=== PATIENT | female | born 1985 | race Caucasian/White ===

== ENCOUNTER 2023-03-22 13:36 | Emergency (ER) | payer OTHER, SELFPAY ==
--- NOTE | ~2023-03-22 | XR_ITS ---
EXAM: XR toe 4th RT min 2V DATE: 03/22/2023 14:08 HISTORY: jammed 4th rt toe. pain swelling. limited rom . COMPARISON: None available. FINDINGS: Normal mineralization. Likely acute fracture fragment adjacent to the distal and lateral a spect of the fourth proximal phalange, donor site is unclear. Note that in some views the margins of the fragment appear smooth and sclerotic which can be seen with subacute to chronic fractures, so the age of this fracture is difficult to determine. No lytic or blastic lesion. Joint spaces and physes are maintained. No erosion or periosteal change. Soft tissues within normal limits. IMPRESSION: Likely acute fracture fragment adjacent to the distal and lateral aspect of the fourth pr oximal phalange. Reviewed, dictated and finalized at location K. IMPRESSION: Likely acute fracture fragment adjacent to the distal and lateral a spect of the fourth proximal phalange.
[2023-03-22 13:53] VITALS: BP 162/97; PULSE 16; RESP 16; TEMP 36.1; O2SAT 100
--- NOTE | 2023-03-22 13:55 | ED.LOWEXIN ---
HPI - Extremity Injury (Lower) General Chief Complaint: Extremity Injury, Lower Stated Complaint: toe injury(rt foot) Time Seen by Provider: 03/22/23 13:55 Source: patient, RN notes reviewed and old records reviewed Mode of arrival: ambulatory Limitations: no limitations History of Present Illness HPI Narrative: 38-year-old female presents to the [facility] with complaints of a right 4th toe pain. Patient states she was wearing heels all day and developed pain to the base and lateral aspect of the toe. No bruising, mild swelling, tender to the MTP joint Onset (ago): day(s) (2) Related Data Home Medications Medication Instructions Recorded Confirmed No Home Medications 03/22/23 03/22/23 Allergies Allergy/AdvReac Type Severity Reaction Status Date / Time Sulfa (Sulfonamide AdvReac Mild Hives Verified 03/22/23 14:04 Antibiotics) tramadol AdvReac Mild Hives Verified 03/22/23 14:05 Review of Systems Review of Systems: All systems reviewed & are unremarkable except as noted in HPI and below Constitutional: Constitutional: Reports no additional constitutional complaints Eyes: Eyes: Reports no additional eye complaints ENT: Reports system reviewed and no additional complaints, except as documented Cardiovascular: Cardiovascular: Reports no additional cardiovascular complaints, Denies chest pain and Denies dyspnea Respiratory: Respiratory: Reports no additional respiratory complaints, Denies chest congestion, Denies cough and Denies dyspnea Gastrointestinal: Gastrointestinal: Reports no additional gastrointestinal complaints, Denies abdominal pain, Denies nausea and Denies vomiting Musculoskeletal: Musculoskeletal: Reports as per HPI Integumentary/Breasts: Skin/Breast: Reports system reviewed and no additional complaints, except as docu Neurologic: Reports system reviewed and no additional complaints, except as documented Psychiatric: Psychiatric: Reports no additional psychiatric complaints Allergic/Immunologic: Allergic/Immunologic: Reports no additional allergic/immunologic complaints PMFSH Comments At the time of my signature, I reviewed and agree with the nursing past medical, surgical, social, and family history. There is no relevant family history pertinent to the patient complaint. Exam Const: General: cooperative, healthy appearing, comfortable, no acute distress, well developed, alert and well nourished Nutritional Appearance: well nourished Orientation/consciousness: patient oriented x3 Limitations: no limitations HENMT: Head: normal to inspection Ears: hearing grossly normal bilaterally and external ears normal Face/Nose/Sinus: Normal external nose present, Normal nares present, Normal nasal mucous membranes and turbinates present and normal facial exam Face and sinus: normal facial exam Eyes: General: appearance normal, both eyes and all related structures Alignment and Position: alignment normal Periorbital: periorbital findings normal Pupils: Equal, round and reactive pupils present EOM: EOMs intact bilaterally Neck: Neck: normal visual inspection, full ROM, no lymphadenopathy and no meningeal signs Chest: Chest palpation & inspection: normal inspection of the chest Resp: Effort & Inspection: normal respiratory effort and able to speak in complete sentences Auscultation: clear to auscultation bilaterally, no crackles, no rales, no rhonchi and no wheezes Cardio: Rate: regular rate Rhythm: regular rhythm Back/Spine/Pelvis: Cervical Spine: cervical ROM normal Thoracic/Lumbar Spine: No thoracic spinal tenderness Skin: General skin exam: normal color and no rashes or lesions noted Lesions: no lesions Rashes: no rashes Wounds: no wounds Neuro: General: patient oriented x3, gait normal, tone normal, moves all extremities and no meningeal signs Cranial nerves: Yes Equal, round and reactive pupils present Cognition (Neuro): normal cognition Speech: normal speech Gait exam (Neuro): No
== END 2023-03-22 14:37 | disposition home or self-care (01) ==
PROVIDERS: Emergency Provider Nurse Practitioner
DX: S92.501A Displaced unspecified fracture of right lesser toe(s), initial encounter for closed fracture (principal); X58.XXXA Exposure to other specified factors, initial encounter
CPT/HCPCS: 73660; 99214; G0463

== ENCOUNTER 2023-05-24 10:46 | Outpatient (CLI) | payer OTHER, SELFPAY ==
[2023-05-24 18:48] LABS: Alanine Aminotransferase 38 U/L (6-35); Albumin Level 4.3 g/dL (3.5-5.1); Alkaline Phosphatase 84 U/L (38-126); Anion Gap 7 mmol/L (8-16); Aspartate Amino Transferase 50 U/L (14-36); Bilirubin,Total 0.5 mg/dL (0.2-1.3); Blood Urea Nitrogen 11 mg/dL (7-17); Calcium 8.8 mg/dL (8.4-10.2); Carbon Dioxide 29 mmol/L (22-30); Chloride 101 mmol/L (98-107); Cholesterol 179 mg/dL (0-200); Estimated Glomerular Filt Rate > 60; Glucose 103 mg/dL (65-110); HDL Direct 43 mg/dL; Potassium 4.5 mmol/L (3.4-5.0); Sodium 137 mmol/L (137-145); Triglycerides 95 mg/dL (<150)
[2023-05-24 18:58] LABS: LDL Cholesterol Direct 102 mg/dL
[2023-05-24 19:48] LABS: Hemoglobin A1C 5.7 % (<5.7)
== END 2023-05-24 10:47 | disposition home or self-care (01) ==
LOC: ANHGOSHLAB 10:48
PROVIDERS: PCP Emergency Medicine; Visit Provider Emergency Medicine
DX: E88.81 Metabolic syndrome and other insulin resistance (principal)
CPT/HCPCS: 36415; 80053; 80061; 83036; 84443

== ENCOUNTER 2023-06-30 10:00 | Outpatient (RCR) | payer OTHER, MEDICAID, SELFPAY ==
--- NOTE | 2023-05-30 12:44 | PTOPEVAL1 ---
Assessment and note entered by Guanako Kaur, PT Evaluation Information Assessment Status Evaluation Diagnosis Sprain of R ACL Onset 18 months ago Subjective Information Patient reports damaging her ACL 18 months ago while she lived in [place]. Unable to do therapy at that time as her work schedule does not allow it. 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 Patient does use a sleeve while at work. Patient reports stiffness in the morning and then it will loosen up, but by the end of her work day it has fatigued again and causes pain. Occasional knee buckling causing falls. Reported Pain Level Pain Score 4: Self Report Assessment PT Clinical Summary Lianne is a 38 year old female coming into the clinic with a diagnosis of R ACL injury. Patient has weakness in her hip and slight tenderness over the inferior medial portion of her R knee, but good knee strength and no positive special tests. Physical therapist will work on closed chain knee exercises and hip strengthening. Modalities and manual therapy as needed for pain. Plan of Care Interventions Electrical Stimulation,Gait Training,Hot Pack/Cold Pack,Manual Therapy,Neuro Re-education,Patient/ Caregiver Education,Therapeutic Activities, Therapeutic Exercise,Ultrasound Other Interventions cupping, taping, IASTM PT Services Indicated Yes Treatment Frequency and 1-2x/week for 8 visits Duration These treatments will address the objective and functional deficits as defined above. The patient will be advanced safely and appropriately in order for the patient to progress towards his/her prior level of function. Additional exercises will be introduced and as well as a comprehensive home exercise program upon discharge, if needed, ?to ensure carryover of functional gains achieved in the clinic. This treatment plan has been reviewed and agreement upon by the patient.
--- NOTE | 2023-05-30 12:44 | OPREHPOC ---
Outpatient Therapy Plan of Care This is a Multidisciplinary Plan of Care that may contain components documented by all disciplines (PT, OT, and ST.) PT Problem 1 PT Problem #1 Knowledge Deficit PT Goal 1 Goal independent with HEP Target Visit 8 PT Problem 2 PT Problem #2 Pain PT Goal 1 Goal decrease pain to no worse than 3/10 after work Target Visit 8 PT Problem 3 PT Problem #3 Impaired Strength PT Goal 1 Goal TRUPTI hips 5/5 Target Visit 8 Comment to take stress off of the knee
--- NOTE | 2023-06-16 16:06 | PCPTNOTE ---
Pt no showed visit today.
--- NOTE | 2023-06-30 12:32 | OPREHPOC ---
Outpatient Therapy Plan of Care This is a Multidisciplinary Plan of Care that may contain components documented by all disciplines (PT, OT, and ST.) PT Problem 1 PT Problem #1 Knowledge Deficit PT Goal 1 Goal independent with HEP Target Visit 8 Progress Met PT Problem 2 PT Problem #2 Pain PT Goal 1 Goal decrease pain to no worse than 3/10 after work Target Visit 8 Progress Met PT Problem 3 PT Problem #3 Impaired Strength PT Goal 1 Goal TRUPTI hips 5/5 Target Visit 8 Progress Met Comment to take stress off of the knee
--- NOTE | 2023-06-30 12:33 | PTOPDC ---
Assessment and note entered by David Arora, PT Discharge Information Assessment Status Discharge Diagnosis Sprain of R ACL Onset 18 months ago Subjective Information Reports that overall since starting therapy she does feel she is doing better. She has not hesitated to push herself in the gym and pain has been low and controlled. She is still concerned for her usp ability since there is documented structural damage in knee. She plans to schedule orthopedic consult to assess for potential of surgery. No discharge from PT concerns at this time. Understand and compliant with HEP. Reported Pain Level Pain Score 2: Self Report Assessment PT Clinical Summary Patient is demonstrating significant improvement in hip and knee strength. She has minimal loss in R knee flexion ROM but no notable edema is present . She is active and demonstrates understanding and compliance with HEP. I am recommending orthopedic consult to help address options for surgical repair. Plan of Care PT Services Indicated No
== END 2023-06-30 15:30 | disposition home or self-care (01) ==
LOC: ANHPT 10:00
PROVIDERS: PCP Emergency Medicine; Visit Provider Emergency Medicine
DX: S83.511D Sprain of anterior cruciate ligament of right knee, subsequent encounter (principal)
CPT/HCPCS: 97110; 97112; 97140; 97161; 97530; 99199

== ENCOUNTER 2024-01-19 09:32 | Outpatient (CLI) | payer OTHER, SELFPAY ==
--- NOTE | ~2024-01-19 | US_ITS ---
EXAMINATION: US pelvic complete w TV DATE: 01/19/2024 10:33 INDICATION: Pelvic pain Comparison:No prior studies for comparison. TECHNIQUE: Multiple transabdominal and endovaginal sonographic images of the pelvis performed. FINDINGS: The uterus measures 10.4 x 5 x 5 cm. There are uterine fibroids, largest on the right measu ring 2.9 x 2.7 x 2.5 cm. The endometrial complex measures 3 mm. The right ovary measures 2.9 x 1.5 x 1.8 cm and the left ovary is not visualized. There are small fol licles in the right ovary. Normal doppler signal in the right ovary. There is no free fluid in the pelvis. There are no abnormal masses seen on either side. IMPRESSION: 1. Enlarged fibroid uterus. Largest discrete fibroid measures 2.9 cm. Reviewed, dictated and finalized at location L.
== END 2024-01-19 09:33 | disposition home or self-care (01) ==
PROVIDERS: PCP Emergency Medicine; Visit Provider Nurse Practitioner Family
DX: N85.2 Hypertrophy of uterus (principal)
CPT/HCPCS: 76830; 76856

== ENCOUNTER 2024-05-24 17:15 | Outpatient (CLI) | payer OTHER, SELFPAY ==
--- NOTE | ~2024-05-24 | XR_ITS ---
EXAMINATION: XR hand LT min 3V DATE: 05/24/2024 17:28 INDICATION: Unspecified injury of left wrist and hand. TECHNIQUE: 3 views of left hand were obtained. COMPARISON: None. FINDINGS: Bone alignment is normal. No fracture. 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 IMPRESSION: 1. No fracture. Reviewed, dictated and finalized at location A. IMPRESSION: 1. No fracture.
== END 2024-05-24 17:16 | disposition home or self-care (01) ==
LOC: ANHIMG 17:16
PROVIDERS: PCP Emergency Medicine; Visit Provider Student in an Organized Health Care Education/Training Program
DX: S69.92XA Unspecified injury of left wrist, hand and finger(s), initial encounter (principal); X58.XXXA Exposure to other specified factors, initial encounter
CPT/HCPCS: 73130

== ENCOUNTER 2024-05-30 23:46 | Observation (INO) | payer OTHER, SELFPAY ==
--- NOTE | ~2024-05-30 | XR_ITS ---
Portable chest x-ray Comparison: None Clinical History: Palpitations Findings: Lungs are clear, without focal consolidation or pleural effusion. Cardiomediastinal silho uette is stable. Bones and soft tissues are unremarkable. Impression: Normal chest. Reviewed, dictated and finalized at location M. Impression: Normal chest.
--- NOTE | ~2024-05-30 | US_ITS ---
EXAMINATION: US OB <=14 wk fetus w TV DATE: 05/31/2024 09:20 INDICATION: Early . Supraventricular tachycardia. TECHNIQUE: Real-time transabdominal and transvaginal pelvic ultrasound was performed. COMPARISON: Ultrasound 01/19/2024 FINDINGS: TRANSABDOMINAL ULTRASOUND: The uterus measures 10.6 x 5.8 x 6.6 cm. TRANSVAGINAL ULTRASOUND: The endometrial complex measures 15 mm in thickness. There is a 4 mm cyst in the endometrial complex with intradecidual sign that may be a gestational sac with estimated gestati onal age of 5 weeks and 0 days. There is a 3.3 cm subserosal fibroid. The right ovary measures 4.1 x 2.0 x 3.0 cm. The left ovary measures 2.7 x 1.2 x 2.1 cm. There is normal vascular flow in the ovarie s. There is no free fluid in the pelvis. IMPRESSION: 1. 4 mm cyst in the endometrial complex that may be a gestational sac with estimated gestational age of 5 weeks and 0 days. Spontaneous and ectopic are not excluded. Serial beta hCGs are recommended. 2. Uterine fibroid. Reviewed, dictated and finalized at location A. IMPRESSION: 1. 4 mm cyst in the endometrial complex that may be a gestational sac with est imated gestational age of 5 weeks and 0 days. Spontaneous and ectopic are not excluded. Serial beta hCGs are recommended. 2. Uterine fibroid.
--- NOTE | 2024-05-30 23:48 | ECG_ITS ---
Test Date: 2024-05-30 23:54:07 Measurements Intervals [place] Rate: 156 P: 0 TN: 0 QRS: 143 QRSD: 93 T: -6 QT: 258 QTc: 416 Interpretive Statements ATRIAL FLUTTER/TACHYCARDIA WITH RAPID VENTRICULAR RESPONSE WITH ABERRANT CONDUCTION OR VENTRICULAR PREMATURE COMPLEXES POOR R-WAVE PROGRESSION RIGHT AXIS DEVIATION ABNORMAL ECG No previous ECG available for comparison Electronically Signed On 05-31-2024 07:22:22 CDT by Shan Zurita M.D.
[2024-05-30 23:49] VITALS: BP 146/106; PULSE 140; RESP 15; TEMP 36.1; O2SAT 100
[2024-05-31] VITALS (20 sets, daily range): BP systolic 129–190; BP diastolic 72–130; PULSE 72–198; RESP 11–28; TEMP 36.1–37.1; O2SAT 96–100; BMI 38.9
[2024-05-31] MEDS: SODIUM CHLORIDE 0.9% IV 1,000 ML 999 ML IV CONT ×2 (00:09→01:04)
--- NOTE | 2024-05-31 00:17 | PC.NURSE ---
Pt arrived to ED in SVT. EDP Lipsmeyer at bedside. 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 Pt given 6mg adenosine at 0010 (vitals: HR 157, 100% RA, 23R) Pt given 12mg adenosine at 0012 (vitals: HR 160, 100% RA, 21R)
[2024-05-31 00:20] LABS: Basophils Percent Auto 0.2 % (0.2-1.2); Eosinophils Absolute Auto 0.1 K/mm3 (0-0.3); Eosinophils Percent Auto 0.6 % (0-4.4); Hematocrit 47.3 % (37.0-47.0); Hemoglobin 15.8 g/dL (12.0-15.0); Immature Granulocyte Absolute 0.08 K/mm3 (0.00-0.031); Immature Granulocyte Percent A 0.5 % (0-0.5); Lymphocytes Absolute Auto 3.29 K/mm3 (0.9-3.2); Lymphocytes Percent Auto 20.6 % (18.3-44.2); Mean Corpuscular HGB Conc 33.4 g/dl (32-36); Mean Corpuscular Hemoglobin 27.4 pg (26-34); Mean Platelet Volume 9.3 fl (7.4-10.4); Monocytes Absolute Auto 1.2 K/mm3 (0.1-0.6); Monocytes Percent Auto 7.4 % (2.6-8.5); Neutrophils Absolute Auto 11.3 K/mm3 (1.3-6.7); Neutrophils Percent Auto 70.7 % (45.5-73.1); Platelet Count Result 468 k/mm3 (150-375); Red Blood Count 5.77 M/mm3 (4.2-5.4); Red Cell Distribution Width 14.8 % (11.5-14.5)
[2024-05-31 00:29] LABS: Prothrombin Time 13.4 Seconds (11.1-14.7)
[2024-05-31 00:30] LABS: Partial Thromboplastin Time 31.9 Seconds (22.3-36.8)
[2024-05-31 00:32] LABS: Alanine Aminotransferase 36 U/L (6-35); Albumin Level 4.5 g/dL (3.5-5.1); Alkaline Phosphatase 107 U/L (38-126); Anion Gap 15 mmol/L (4-12); Aspartate Amino Transferase 38 U/L (14-36); Bilirubin,Total 0.5 mg/dL (0.2-1.3); Blood Urea Nitrogen 11 mg/dL (7-17); Calcium 9.3 mg/dL (8.4-10.2); Carbon Dioxide 24 mmol/L (22-30); Chloride 97 mmol/L (98-107); Estimated CRCL calculation 132 ml/min; Estimated Glomerular Filt Rate > 60; Glucose 219 mg/dL (65-110); Lipase 93 U/L (23-300); Potassium 3.5 mmol/L (3.4-5.0); Sodium 136 mmol/L (137-145)
[2024-05-31 00:33] LABS: Magnesium 1.8 mg/dL (1.6-2.3)
[2024-05-31] MEDS: ADENOSINE IV SOLN 6 MG/2 ML VIAL 18 MG (00:39)
[2024-05-31 00:44] LABS: Troponin I 0.052 ng/mL (0.000-0.034)
[2024-05-31 00:51] LABS: Beta HCG Quantitative 726.43 mIU/ML
[2024-05-31 01:00] LABS: Beta-Hydroxybutyrate/Acetoacetate 0.32 mmol/L (0.02-0.27)
[2024-05-31] MEDS: MAGNESIUM SULF 2 GM/WATER 50ML 2 GM/50 ML BAG IVPB (01:04)
[2024-05-31] MEDS: POTASSIUM CHLORIDE 20 MEQ PACKET (FOR LIQUID) 40 MEQ PO (01:05)
[2024-05-31] MEDS: METOPROLOL TARTRATE INJ 5 MG/5 ML VIAL IV PUSH ×3 (01:17→01:27)
[2024-05-31] MEDS: METOCLOPRAMIDE HCL INJ 10 MG/2 ML VIAL IV PUSH (02:14)
--- NOTE | 2024-05-31 02:16 | ECG_ITS ---
Test Date: 2024-05-31 02:18:36 Measurements Intervals [place] Rate: 79 P: 20 NM: 164 QRS: 114 QRSD: 89 T: 11 QT: 363 QTc: 416 Interpretive Statements SINUS RHYTHM POOR R-WAVE PROGRESSION RIGHTWARD AXIS ABNORMAL ECG Compared to ECG 05/30/2024 23:54:07 SINUS RHYTHM HAS BEEN RESTOREDt Electronically Signed On 05-31-2024 07:25:06 CDT by Shan Zurita M.D.
--- NOTE | 2024-05-31 02:24 | ED.GENADULT ---
HPI - General Adult General Chief complaint: Arrhythmia/Palpitations Stated complaint: palpitations/SOB, 6 weeks Time Seen by Provider: 05/31/24 00:19 History of Present Illness HPI narrative: Patient 39-year-old female who presents emergency department with chief complaint tachycardia and irregular heartbeat patient reports that she felt short of breath and started feeling as though her heart was beating fast patient reports symptoms started about 4 hours prior to arrival patient reports approximately 6 weeks and just found out yesterday. The patient reports that she has no prior history of SVT or AFib her regular heartbeat. Related Data Home Medications Medication Instructions Recorded Confirmed multivitamin 1 tablet PO DAILY 05/24/23 05/24/24 vitamin B complex (B 1 tablet PO DAILY 05/24/23 05/24/24 Complex-Vitamin B12 tablet) Allergies Allergy/AdvReac Type Severity Reaction Status Date / Time Sulfa (Sulfonamide AdvReac Mild Hives Verified 05/30/24 23:53 Antibiotics) tramadol AdvReac Mild Hives Verified 05/30/24 23:53 Review of Systems Review of Systems: A 10 system review of systems was completed on the patient and is negative except for what is stated in the HPI. Nursing and ancillary documentation was reviewed. [facility] Surgical History Surgical History History of appendectomy 2018 Social History Social History Smoking status: Never smoker Alcohol intake: never Substance use: never Substance use type: does not use Lack of Transportation: No Lack of Food: Never True Current Housing: I Have Housing Concerned About Future Housing: No Difficulty Paying Gas/Electric Bills: No Difficulty Paying for Meds: No Currently Unemployed: No Education: Associate Degree Difficulty w/ Childcare or Family Care: No Occupation/Education: occupation Additional occupation/education comments: [employer] Gender identity (if verbalized by the patient): Female Exam Narrative: GENERAL: Well-appearing, well-nourished, and in mild acute distress. HEAD: Normocephalic, atraumatic. EYES: PERRLA and EOMI. ENT: Nares clear, no rhinorrhea or epistaxis. Mucous membranes moist. NECK: Supple. CHEST: Clear to auscultation. No respiratory distress. HEART: Tachycardic rate and rhythm. No murmur heard. Normal peripheral pulses. ABDOMEN: Soft, nontender, nondistended, normal active bowel sounds. EXTREMITIES: Normal range of motion. No edema. SKIN: Warm, dry, no rash. NEURO: No focal deficits. Alert and oriented x3. PSYCH: Normal mood and affect. Course Vital Signs Vital signs: Vital Signs Temperature 36.1 C L 05/30/24 23:49 Pulse Rate 140 H 05/30/24 23:49 Respiratory Rate 15 05/30/24 23:49 Blood Pressure 146/106 H 05/30/24 23:49 Pulse Oximetry 100 05/30/24 23:49 Oxygen Delivery Room Air 05/30/24 23:49 Temperature 36.1 C L 05/30/24 23:49 Pulse Rate 83 05/31/24 02:16 Respiratory Rate 28 H 05/31/24 02:16 Blood Pressure 146/106 H 05/30/24 23:49 Pulse Oximetry 98 05/31/24 02:16 Oxygen Delivery Room Air 05/30/24 23:[address] [facility] Narrative Medical decision making narrative: Differential diagnosis includes SVT, AFib, a flutter, electrolyte abnormality, dehydration EKG showed a narrow complex tachycardia with a rate of 156. Attempt was made to treat the patient with adenosine 6 mg did not affect the patient and 12 mg did slow the patient down where visible flutter waves were seen during the pauses Given the patient's the patient was treated with IV Lopressor. The patient received 3 doses of Lopressor he also received IV fluids magnesium and potassium the patient also is feeling nauseated received a dose of Reglan. Laboratory studies did show a white count of 16 hemoglobin
--- NOTE | 2024-05-31 03:12 | ECG_ITS ---
Test Date: 2024-05-31 03:12:55 Measurements Intervals [place] Rate: 82 P: 10 UT: 162 QRS: 107 QRSD: 108 T: 10 QT: 383 QTc: 447 Interpretive Statements SINUS RHYTHM POOR R-WAVE PROGRESSION RIGHTWARD AXIS ABNORMAL ECG Compared to ECG 05/31/2024 02:18:36 NO DIFFERENCE Electronically Signed On 06-01-2024 13:23:05 CDT by Shan Zurita M.D.
[2024-05-31 03:41] LABS: Troponin I 0.063 ng/mL (0.000-0.034)
[2024-05-31] MEDS: SODIUM CHLORIDE 0.9% IV 1,000 ML 125 ML IV CONT (04:04)
--- NOTE | 2024-05-31 05:36 | ADMGEN ---
This patient, Batsheva Rodriguez, was admitted to IMU Room 206-02 at 0532. Patient/family oriented to hospital policies and general routines including ID bracelet, bed and alarms, visiting hours, pain management, procedures, bathroom and other care routines, personal items, smoking policy, room service/diet, and visiting hours. Information on how to activate the Rapid Response Team has been discussed. Patient/Family are encouraged to report perceived risks to care and to ask questions if they do not understand what they are told or what they should do.
--- NOTE | 2024-05-31 07:45 | WPDCN ---
Assessment and Plan Assessment and plan (1) : Qualifiers: Weeks of gestation: less than 8 weeks Qualified Code(s): Z3A.01 - Less than 8 weeks gestation of Code(s): Z34.90 - Encounter for supervision of normal , unspecified, unspecified trimester Status: Acute Assessment and Plan: - OB US ordered; possible early gestational sac in-utero noted, will need repeat US in 2wks to confirm - Positive beta of 726; repeat pending 48 hours (ordered-- can do outpatient) - Reglan/zofran PRN nausea, encouraged frequent snacking, hydration encouraged - Other PRN meds safe in : Tylenol, Tums/Pepcid, Benadryl/Claritin, colace/miralax - Pt noted to be hypertensive; concern for CHTN on review with other hypertensive values noted in the past-- will continue to monitor, labetalol or nifedipine preferred treatment in with goal BP <140/90 - Would recommend hgbA1c, ABO/Rh, antibody screen - Will refer outpatient to [facility] for co-management of high risk patient if viable confirmed - Will have my office reach out and schedule first visit (2) Atrial flutter with rapid ventricular response: Code(s): I48.92 - Unspecified atrial flutter Status: Acute Assessment and Plan: - Cardiology to manage - S/p adenosine 6mg, 12mg and labetalol IV 5mg x 3 - Now rate controlled in 80's - Beta blockers safe in - TSH normal, hgb 15.8 (hemoconcentration?), repeat troponin downtrending - Anti-coagulation (if indicated, per cardiology's recs), prefer lovenox until 36wks, then transition to heparin - ASA also safe, will start empiric dose of 162mg at 12wks to lower risk of pre-eclampsia HPI Data of Consult Date/Time: 05/31/24 12:30 Requesting Physician: Yasmeen Eden DO Primary Care Provider: Prem Mora MD Consult Narrative Narrative: Batsheva is a 39yo @ 6.0wks, LMP 04/19/24 who is admitted to hospitalist with tachycardia to 198's; s/p 2L IV fluids, adenosine 6mg, 12mg, IV labetalol 5mg x3 doses. Cardiology is also consulted and will follow. Her heart rate is now controlled in the 80's. She denies any CP, SOB, or palpitations now. She recently found out she was . She denies any pelvic pain/bleeding. She denies nausea, vomiting. is complicated by: - Pre-dm/insulin resistance - AMA - Fibroid uterus - Obesity - CHTN? - Tachycardia this admission Review of Systems Constitutional: Constitutional: Denies chills and Denies fever(s) Eyes: Eyes: Denies change in vision Cardiovascular: Cardiovascular: Denies chest pain, Denies rapid heart rate and Denies dyspnea Respiratory: Respiratory: Denies dyspnea Gastrointestinal: Gastrointestinal: Denies abdominal pain, Denies change in bowel habits, Denies nausea and Denies vomiting Genitourinary: Genitourinary: Denies abnormal vaginal bleeding, Denies dysuria, Denies vaginal discharge, Denies vaginal odor and Denies vaginal pruritus Integumentary/Breasts: Skin/Breast: Reports breast pain (/tenderness) Neurologic: Denies dizziness and Denies headache(s) [facility] Surgical History Surgical History History of appendectomy 2018 Family History Family History Father Acute myocardial infarction Social History Social History Smoking status: Never smoker Second hand tobacco smoke exposure: No Alcohol intake: never Substance use: never Substance use type: does not use Do You Feel Safe in your Home?: Yes Lack of Transportation: No Lack of Food: Never True Current Housing: I Have Housing Concerned About Future Housing: No Difficulty Paying Gas/Electric Bills: No Difficulty Paying for Meds: No Currently Unemployed: No Education: Decline to Answer Difficulty w/ C
[2024-05-31 07:56] LABS: Troponin I 0.053 ng/mL (0.000-0.034)
--- NOTE | 2024-05-31 08:49 | PM.CNCAR ---
Assessment and Plan Assessment and plan (1) Atrial flutter with rapid ventricular response: Code(s): I48.92 - Unspecified atrial flutter Status: Acute Assessment and Plan: This is a new diagnosis. She has converted to sinus rhythm and remains in sinus rhythm now. As she is , I discussed wanting to avoid use of AV dilcia agents and certainly any antiarrhythmics. She is in agreement with this. Obviously if she has recurrence we may need to alter our strategy. I am going to send an outpatient referral to an draw frame runner as well. No indication for anticoagulation and would need to avoid this anyhow given that she is . TSH, electrolytes checked and were WNL. I will order an echo. If her echocardiogram is unremarkable she can be discharged to follow up with EP. She needs to follow up with her PCP as well to discuss sleep study. History of Present Illness History of Present Illness Consult date/time: 05/31/24 08:49 Requesting physician: Eliecer Dewey MD Consult reason: Other (SVT) Reason For Visit: Atrial flutter with rapid ventricular response Narrative: Batsheva Rodriguez is a 39-year-old female with no medical history. She is 6 weeks . She comes to the hospital with a chief complaint of palpitations. Patient states she was at work sitting down when she began to feel that her heart was racing and pounding in her chest. She checked her pulse with a pulse oximeter and states that her heart rate was fluctuating between 70 beats per minute and 170 beats per minute. She left work and presented to the emergency department where her initial EKG showed atrial flutter with rapid ventricular response. She was given adenosine and when this was administered, a small flutter waves were seen. However, she did not convert to sinus rhythm. She was given 3 doses IV Lopressor and did convert to sinus rhythm after the 3rd dose. She has not had recurrence of atrial flutter says that time. At the time of my evaluation, she is feeling well and has no complaints. She does not have any history of arrhythmias or any other cardiac history. She has a family history of atrial fibrillation and coronary artery disease. Review of Systems Review of Systems: All systems reviewed & are unremarkable except as noted in HPI and below PMFSH Surgical History Surgical History History of appendectomy 2018 Family History Family History Father Acute myocardial infarction Social History Social History Smoking status: Never smoker Second hand tobacco smoke exposure: No Alcohol intake: never Substance use: never Substance use type: does not use Do You Feel Safe in your Home?: Yes Lack of Transportation: No Lack of Food: Never True Current Housing: I Have Housing Concerned About Future Housing: No Difficulty Paying Gas/Electric Bills: No Difficulty Paying for Meds: No Currently Unemployed: No Education: Decline to Answer Difficulty w/ Childcare or Family Care: No Occupation/Education: occupation 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 Gender identity (if verbalized by the patient): Female Spiritual care concerns: No Meds Home Medications and Allergies Home Medications Medication Instructions Recorded Confirmed Type No Home Medications 05/31/24 05/31/24 History Allergies Allergy/AdvReac Type Severity Reaction Status Date / Time Sulfa (Sulfonamide AdvReac Mild Hives Verified 05/30/24 23:53 Antibiotics) tramadol AdvReac Mild Hives Verified 05/30/24 23:53 Vital Signs Vital Signs - 24 hr 05/30/24 23:49 05/31/24 00:00 05/31/24 00:01 Temperature 36.1 C L Pulse Rate 140 H 144 H 120 H Respiratory Rate 15 20 Blood Pressure 146/106 H Pulse Oximetry 100 97 Ox
--- NOTE | 2024-05-31 14:36 | PM.IMHP ---
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 Pt seen by cardoilogy team awaiting ECho labs reviwed are nl Pt seen by OB/ HAMMERER who order hbaic and BP monitoring today one elevated BP earlier in the day fluids have been stopped plan to monitor BP overnite Pt may need to start Beta blockers for HTN Review of Systems Review of Systems: SOB heart palpations all other 12 systems were negative All systems reviewed & are unremarkable except as noted in HPI and below Constitutional: Constitutional: Denies excessive sweating, Denies fatigue, Denies frequent falls and Denies headache(s) ENT: Denies headache(s) Cardiovascular: Cardiovascular: Denies chest pain, Reports irregular heart rhythm, Reports dyspnea and Reports dyspnea on exertion Respiratory: Respiratory: Denies cough, Denies hemoptysis, Reports dyspnea, Reports dyspnea on exertion and Denies wheezing Gastrointestinal: Gastrointestinal: Denies abdominal pain and Denies change in bowel habits Musculoskeletal: Musculoskeletal: Denies no additional musculoskeletal complaints, Denies limited range of motion and Denies numbness Neurologic: Denies frequent falls, Denies headache(s), Denies numbness and Denies convulsions Psychiatric: Psychiatric: Denies hallucinations and Denies tactile hallucinations Endocrine: Endocrine: Denies excessive sweating, Denies fatigue and Denies flushing Allergic/Immunologic: Allergic/Immunologic: Denies wheezing PMFSH Surgical History Surgical History History of appendectomy 2018 Family History Family History Father Acute myocardial infarction Social History Social History Smoking status: Never smoker Second hand tobacco smoke exposure: No Alcohol intake: never Substance use: never Substance use type: does not use Do You Feel Safe in your Home?: Yes Lack of Transportation: No Lack of Food: Never True Current Housing: I Have Housing Concerned About Future Housing: No Difficulty Paying Gas/Electric Bills: No Difficulty Paying for Meds: No Currently Unemployed: No Education: Decline to Answer Difficulty w/ Childcare or Family Care: No Occupation/Education: occupation 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 Gender identity (if verbalized by the patient): Female Spiritual care concerns: No Meds Home Medications and Allergies Home Medications Medication Instructions Recorded Confirmed Type No Home Medications 05/31/24 05/31/24 History Allergies Allergy/AdvReac Type Severity Reaction Status Date / Time Sulfa (Sulfonamide AdvReac Mild Hives Verified 05/30/24 23:53 Antibiotics) tramadol AdvReac Mild Hives Verified 05/30/24 23:53 Vital Signs Vital Signs - 24 hr 05/30/24 23:49 05/31/24 00:00 05/31/24 00:01 Temperature 36.1 C L Pulse Rate 140 H 144 H 120 H Respiratory Rate 15 20 Blood Pressure 146/106 H Pulse Oximetry 100 97 Oxygen Delivery Room Air 05/31/24 01:17 05/31/24 01:22 05/31/24 01:27 Temperature Pulse Rate 198 H 155 H 146 H Respiratory Rate Blood Pressure Pulse Oximetry Oxygen Delivery 05/31/24 02:16 05/31/24 04:08 05/31/24 06:00 Temperature Pulse Rate 83 80 76 Respiratory Rate 28 H 28 H Blood Pressure 137/85 Pulse Oximetry 98 98 Oxygen Delivery 05/31/24 05:57 05/31/24
[2024-05-31] MEDS: diphenhydrAMINE HCl CAP 25 MG CAPSULE PO (22:02)
[2024-06-01] VITALS (8 sets, daily range): BP systolic 163–187; BP diastolic 90–110; PULSE 76–92; RESP 14–18; TEMP 36.7–36.9; O2SAT 99–100
--- NOTE | 2024-06-01 | ECHO_ITS ---
Patient Info Name: Batsheva Rodriguez Age: 39 years : 1985 Gender: Female HR: 82 bpm BP: 174 / 95 mmHg Heart Rhythm: Sinus Rhythm Technical Quality: Fair Exam Date: 06/01/2024 10:12 AM Exam Location: Echo Lab Patient Status: Outpatient Admit Date: 05/31/2024 Staff Ordering Physician: Leanna Nair Podiatry Doctor: Zainab Ang RDCS Attending Provider: Yasmeen Eden DO Referring Physician: Joanie SOLIS; Exam Type: CA echo doppler color flow Study Info Indications - atrail flutter Complete two-dimensional, color flow and Doppler transthoracic echocardiogram is performed. Summary 1. Complete two-dimensional, color flow and Doppler transthoracic echocardiogram is performed. 2. Unremarkable 2D/Doppler echocardiogram. Left Ventricle Left ventricular chamber dimension is normal. Left ventricular systolic function is normal, estimated at 60-65%. The left ventricular diastolic function is normal. Right Ventricle Right ventricular chamber dimension is normal. Left Atria Left atrial chamber dimension is normal. Right Atria Right atrial chamber dimension is normal. Aortic Valve The aortic valve is normal. Pulmonic Valve The pulmonic valve is not well visualized. Mitral Valve The mitral valve has normal leaflets. Tricuspid Valve The tricuspid valve leaflets are normal. Pericardium/Pleural The pericardium appears normal. Aorta The aortic root size at the sinus of Valsalva is normal. Left Ventricular Outflow Tract Name Value Normal LVOT 2D LVOT Diameter 2.1 cm LVOT Doppler LVOT Peak Gradient 6 mmHg LVOT Mean Gradient 4 mmHg LVOT VTI 36 cm LVOT VTI/AV VTI Ratio 0.9 LVOT Stroke Volume 128 ml LVOT CO 9.1 l/min Pulmonic Valve Name Value Normal PV Doppler PV Peak Gradient 5 mmHg Mitral Valve Name Value Normal MV Doppler MV Decel [place] 364 cm/s2 MV PHT 84 ms MV Area (PHT) 2.6 cm2 4.0-5.0 MV Regurgitation Doppler MR Peak Gradient 8 mmHg MV Diastolic Function MV E Peak Velocity 105 cm/s MV A Peak Velocity 94 cm/s MV E/A 1.1 MV Decel Time 289 ms MV Annular TDI
[2024-06-01 07:53] LABS: Anion Gap 12 mmol/L (4-12); Blood Urea Nitrogen 7 mg/dL (7-17); Calcium 8.2 mg/dL (8.4-10.2); Carbon Dioxide 22 mmol/L (22-30); Chloride 100 mmol/L (98-107); Estimated CRCL calculation 193 ml/min; Estimated Glomerular Filt Rate > 60; Glucose 146 mg/dL (65-110); Magnesium 1.9 mg/dL (1.6-2.3); Potassium 3.5 mmol/L (3.4-5.0); Sodium 134 mmol/L (137-145)
[2024-06-01] MEDS: ACETAMINOPHEN 325 MG TABLET 650 MG PO (09:53)
[2024-06-01 11:53] LABS: Hematocrit 42.4 % (37.0-47.0); Hemoglobin 13.7 g/dL (12.0-15.0); Mean Corpuscular HGB Conc 32.3 g/dl (32-36); Mean Corpuscular Hemoglobin 27.6 pg (26-34); Mean Corpuscular Volume 85.5 fl (80-100); Platelet Count Result 368 k/mm3 (150-375); Red Blood Count 4.96 M/mm3 (4.2-5.4); Red Cell Distribution Width 15.2 % (11.5-14.5); White Blood Count 11.8 K/mm3 (4.5-10.0)
--- NOTE | 2024-06-01 14:24 | PM.DS ---
DS: Admitting Diagnosis Discharge Date 07/02/2024 Admitting Diagnosis Palpitations DS: Discharge Diagnosis Discharge Diagnosis (1) Atrial flutter with rapid ventricular response: Code(s): I48.92 - Unspecified atrial flutter Status: Acute Assessment and Plan: - Converted to A-Fib in ER after IV adenosine X2, and IV labetalol. - Maintained SR on telemetry inpatient. -Started on Labetalol. - No anticoagulation per Apartment Maintenance Manager. - ECHO unremarkable. (2) Essential hypertension: Code(s): I10 - Essential (primary) hypertension Status: Acute Assessment and Plan: - SBP trending 160's to 190's, DBP trending 80's >110. - Started on Labetalol. - Monitor BP closely. (3) : Qualifiers: Weeks of gestation: less than 8 weeks Qualified Code(s): Z3A.01 - Less than 8 weeks gestation of Code(s): Z34.90 - Encounter for supervision of normal , unspecified, unspecified trimester Status: Acute Assessment and Plan: - Follow distributing clerk recommendations. - No anticoagulation. (4) Prediabetes: Code(s): R73.03 - Prediabetes Status: Acute Assessment and Plan: hbaic is nl at 5.7 follow with high risk maternal Plan - Educated on diabetes diet. DS: Summary Hospital Course Hospital Course: patient presented to the ER with complaints of tachycardia and irregular heartbeat, associated with SOB. She denied previous history of A-Flutter or A-Fib. EKG showed narrow complex tachycardia with a rate of 156, and she was given adenosine and IV Lopressor, which converted patient back to SR. She has maintained SR inpatient. Patient's labs were unremarkable except for elevated WBC's at 16, that was likely reactive, trending down to 11.8 without any interventions. Her troponin was also mildly elevated, 0.063>>0.053, likely due to demand ischemia. Her chemistry was fairly unremarkable, including normal TSH and FT4. Patient denied any Hx of Hypertension, but her BP was observed to be elevated, SBP trending 160's to 190's and DBP trending 80's-100's. She was started on Labetalol that was safe with her per OBGYN, as patient reported that she was 6 weeks . Patient was seen by OBGYN during her hospitalization. She was also seen by the rn clinical and No anticoagulation was recommended. Patient's 2-D ECHO was unremarkable, and she was referred to the Car Retarder Operator outpatient per cardiology. Patient was advised to follow up with her PCP to discuss possible sleep study. Her A1C was 5.7 and she was educated on diabetic diet. Patient currently denies any chest discomfort, dizziness, headache or other symptoms, and is medically stable for discharge. Time Spent with Patient Time attestation: Total time spent providing and/or coordinating discharge services: Time spent: Greater than 30 minutes Exam Const: General: cooperative, healthy appearing, no acute distress, in distress and overweight Nutritional Appearance: overweight Orientation/consciousness: oriented to person HENMT: Head: normal to inspection Face/Nose/Sinus: Normal nares present Mouth: Yes moist mucous membranes Eyes: General: appearance normal, both eyes and all related structures Sclera: sclerae normal Pupils: Equal, round and reactive pupils present EOM: EOMs intact bilaterally Neck: Neck: supple Resp: Effort & Inspection: no respiratory distress Auscultation: clear to auscultation bilaterally Cardio: Rate: regular rate Rhythm: regular rhythm GI: Inspection: normal to inspection Auscultation: normal bowel sounds Skin: General skin exam: normal color and no rashes or lesions noted Neuro: General: gait normal Other: Well oriented, CN II-XII grossly intact Extrem: General: normal to inspection Psych: Mental Status: mental status grossly normal Affect: normal affect DS: Data Data Completed and Pending Labs on day of discharge: Labs from last 2
[2024-06-01] MEDS: LABETALOL HCL 100 MG TABLET 200 MG PO (15:39)
== END 2024-06-01 17:44 | disposition home or self-care (01) ==
LOC: ANHED 05-31 02:28 → ANHIMU 05-31 07:43
PROVIDERS: Family Medicine; Nurse Practitioner Adult Health; Admitting Provider Internal Medicine; Emergency Provider Emergency Medicine; PCP Emergency Medicine; Visit Provider Internal Medicine
DX: O99.411 Diseases of the circulatory system complicating pregnancy, first trimester (principal); I48.92 Unspecified atrial flutter; O16.1 Unspecified maternal hypertension, first trimester; O99.891 Other specified diseases and conditions complicating pregnancy; R73.03 Prediabetes; Z3A.01 Less than 8 weeks gestation of pregnancy
CPT/HCPCS: 36415; 71045; 76801; 76817; 80048; 80053; 81025; 82010; 83690; 83735; 84443; 84484; 84702; 85025; 85027; 85610; 85730; 93005; 93306; 96361; 96365; 96366; 96375; 99285; A9270; G0378; J0153; J2765; J3475; J7030

== ENCOUNTER 2024-06-02 09:54 | Outpatient (CLI) | payer OTHER, SELFPAY | END 2024-06-02 09:55 | disposition home or self-care (01) | LOC: ANHLAB 09:56 | PROVIDERS: PCP Emergency Medicine; Visit Provider Obstetrics & Gynecology | DX: O20.0 Threatened abortion (principal) | CPT/HCPCS: 36415; 84702 ==

== ENCOUNTER 2024-06-13 08:50 | Outpatient (CLI) | payer OTHER, SELFPAY ==
--- NOTE | ~2024-06-13 | US_ITS ---
EXAMINATION: US OB <=14 wk fetus w TV DATE: 06/13/2024 09:55 INDICATION: Threatened during first trimester TECHNIQUE: Real-time pelvic ultrasound utilizing both a transvaginal and transabdominal probe was pe rformed. The interpreting radiologist was not present for the study. COMPARISON: 05/31/2024 and 01/19/2024 FINDINGS: The uterus measures 11.1 x 6.1 x 6.2 cm. There is an intrauterine gestational sac. A yolk sac and fe priscilla pole are identified. The crown rump length measures 9 mm, which correlates with an estimated gest ational age of 6 weeks and 6 days. heart motion is identified measuring 127 beats per minute (b pm) by M-mode Doppler. Again seen is a 3.5 x 3.2 x 2.8 cm subserosal fibroid on the right side of the uterus. There is suggestion of an additional 1 cm pedunculated fibroid near the left uterine cornua. The right ovary measures 2.9 x 1.7 x 4.2 cm. The left ovary measures 3.9 x 1.8 x 1.9 cm. Vascular angelic w identified in both ovaries on color Doppler. There is no free fluid in the pelvis. IMPRESSION: 1. Single living fetus with heart rate of 127 bpm. 2. Gestational age by ultrasound of 6 weeks 6 day(s) +/- 4 day(s) with ultrasound estimated date of delivery (RASHAD) of 01/31/2025. 3. Fibroid uterus. Reviewed, dictated and finalized at location A. IMPRESSION: 1. Single living fetus with heart rate of 127 bpm. 2. Gestational age by ultrasound of 6 weeks 6 day(s) +/- 4 day(s) with ultraso und estimated date of delivery (RASHAD) of 01/31/2025. 3. Fibroid uterus.
== END 2024-06-13 08:51 | disposition home or self-care (01) ==
LOC: ANHIMG 08:54
PROVIDERS: PCP Family Medicine; Visit Provider Obstetrics & Gynecology
DX: O20.0 Threatened abortion (principal); Z3A.00 Weeks of gestation of pregnancy not specified; D25.9 Leiomyoma of uterus, unspecified
CPT/HCPCS: 76801; 76817

== ENCOUNTER 2024-06-30 11:18 | Outpatient (CLI) | payer OTHER, SELFPAY ==
[2024-06-30 13:02] LABS: Basophils Percent Auto 0.3 % (0.2-1.2); Eosinophils Absolute Auto 0.2 K/mm3 (0-0.3); Eosinophils Percent Auto 1.5 % (0-4.4); Hemoglobin 12.5 g/dL (12.0-15.0); Immature Granulocyte Absolute 0.05 K/mm3 (0.00-0.031); Immature Granulocyte Percent A 0.4 % (0-0.5); Lymphocytes Absolute Auto 1.79 K/mm3 (0.9-3.2); Lymphocytes Percent Auto 15.3 % (18.3-44.2); Mean Corpuscular HGB Conc 32.9 g/dl (32-36); Mean Corpuscular Hemoglobin 27.5 pg (26-34); Mean Corpuscular Volume 83.5 fl (80-100); Mean Platelet Volume 9.5 fl (7.4-10.4); Monocytes Absolute Auto 0.9 K/mm3 (0.1-0.6); Monocytes Percent Auto 7.3 % (2.6-8.5); Neutrophils Absolute Auto 8.8 K/mm3 (1.3-6.7); Neutrophils Percent Auto 75.2 % (45.5-73.1); Platelet Count Result 388 k/mm3 (150-375); Red Blood Count 4.55 M/mm3 (4.2-5.4); Red Cell Distribution Width 14.6 % (11.5-14.5); White Blood Count 11.7 K/mm3 (4.5-10.0)
[2024-06-30 13:33] LABS: Creatinine Urine 40.7 mg/dL; Total Protein Urine Random 10 mg/dL
[2024-06-30 13:36] LABS: Hemoglobin A1C 6.5 % (<5.7)
[2024-06-30 13:52] LABS: Alanine Aminotransferase 41 U/L (6-35); Albumin Level 3.9 g/dL (3.5-5.1); Alkaline Phosphatase 82 U/L (38-126); Anion Gap 11 mmol/L (4-12); Aspartate Amino Transferase 36 U/L (14-36); Beta HCG Quantitative > 15000.00 mIU/ML; Bilirubin,Total 0.3 mg/dL (0.2-1.3); Blood Urea Nitrogen 13 mg/dL (7-17); Calcium 9.1 mg/dL (8.4-10.2); Carbon Dioxide 21 mmol/L (22-30); Chloride 101 mmol/L (98-107); Estimated Glomerular Filt Rate > 60; Glucose 160 mg/dL (65-110); Glucose 1 Hour PP 50gm Dose 160 mg/dL; Lactate Dehydrogenase 178 U/L (120-246); Potassium 3.7 mmol/L (3.4-5.0); Sodium 133 mmol/L (137-145); Uric Acid 3.7 mg/dL (2.5-7.5)
[2024-06-30 14:12] LABS: HIV 1/2 Ab P24 Ag Result Negative (Negative)
[2024-06-30 14:16] LABS: Hepatitis B Surface Antigen Negative (Negative); Rubella IgG Antibody 86.5 IU/ML
[2024-07-01 12:12] LABS: Rapid Plasma Reagin Non-Reactive (NonReactive)
[2024-07-02 13:19] LABS: CMV IgG Antibody <0.60 U/mL
[2024-07-11 13:18] LABS: SMA 2.0 RISK VARIANT NOT DETECTED
[2024-07-14 09:53] LABS: CF Result NEGATIVE (NEGATIVE)
== END 2024-06-30 11:19 | disposition home or self-care (01) ==
LOC: ANHLAB 11:20
PROVIDERS: PCP Family Medicine; Visit Provider Obstetrics & Gynecology
DX: Z34.90 Encounter for supervision of normal pregnancy, unspecified, unspecified trimester (principal); I10 Essential (primary) hypertension; E88.810 Metabolic syndrome; Z3A.00 Weeks of gestation of pregnancy not specified
CPT/HCPCS: 36415; 80053; 81050; 81220; 81329; 82570; 82947; 83036; 83615; 84156; 84550; 84702; 85025; 86592; 86644; 86703; 86747; 86762; 86787; 86850; 86900; 86901; 87086; 87088; 87340; G0432

== ENCOUNTER 2024-09-03 07:11 | Outpatient (CLI) | payer OTHER, SELFPAY ==
[2024-09-03 08:38] LABS: Glucose Fasting Gestational 126 mg/dL (>/=95)
[2024-09-03 09:37] LABS: Glucose 1 Hour Gest 233 mg/dL (>/=180)
[2024-09-03 10:34] LABS: Glucose 2 Hour Gest 166 mg/dL (>/= 155)
[2024-09-03 12:03] LABS: Glucose 3 Hour Gest 74 mg/dL (>/=140)
== END 2024-09-03 07:12 | disposition home or self-care (01) ==
LOC: ANHLAB 07:13
PROVIDERS: PCP Family Medicine; Visit Provider Obstetrics & Gynecology
DX: Z34.90 Encounter for supervision of normal pregnancy, unspecified, unspecified trimester (principal)
CPT/HCPCS: 36415; 82951; 82952

== ENCOUNTER 2024-10-02 10:03 | Outpatient (CLI) | payer OTHER, SELFPAY ==
[2024-10-02 11:06] LABS: Anion Gap 4 mmol/L (4-12); Blood Urea Nitrogen 9 mg/dL (7-17); Carbon Dioxide 23 mmol/L (22-30); Chloride 104 mmol/L (98-107); Estimated Glomerular Filt Rate > 60; Glucose 107 mg/dL (65-110); Sodium 131 mmol/L (137-145)
[2024-10-05 10:12] LABS: Heparin, Anti-XA 0.39 IU/mL
[2024-10-05 13:43] LABS: TSH QUEST 2.35 mIU/L
== END 2024-10-02 10:04 | disposition home or self-care (01) ==
PROVIDERS: PCP Family Medicine
DX: I48.92 Unspecified atrial flutter (principal)
CPT/HCPCS: 36415; 80048; 84443; 85520

== ENCOUNTER 2025-05-05 22:40 | Emergency (ER) | payer OTHER, SELFPAY ==
[2025-05-05 22:48] VITALS: BP 155/91; PULSE 67; RESP 18; TEMP 36.8; O2SAT 98
[2025-05-05 23:11] LABS: Hematocrit 39.8 % (37.0-47.0); Hemoglobin 12.5 g/dL (12.0-15.0); Immature Granulocyte Percent A 0.2 % (0-0.5); Lymphocytes Absolute Auto 2.41 K/mm3 (0.9-3.2); Mean Corpuscular HGB Conc 31.4 g/dl (32-36); Mean Corpuscular Hemoglobin 25.4 pg (26-34); Mean Corpuscular Volume 80.9 fl (80-100); Nucleated Red Blood Cells Absolute Auto 0.000 K/mm3 (0.0-0.012); Nucleated Red Blood Cells Perc 0.0 % (0.0-0.2); Platelet Count Result 436 k/mm3 (150-375); Red Blood Count 4.92 M/mm3 (4.2-5.4); White Blood Count 12.0 K/mm3 (4.5-10.0)
[2025-05-05 23:25] LABS: Anion Gap 9 mmol/L (4-12); Blood Urea Nitrogen 14 mg/dL (7-17); Calcium 9.4 mg/dL (8.4-10.2); Carbon Dioxide 25 mmol/L (22-30); Chloride 102 mmol/L (98-107); Estimated CRCL calculation 103 ml/min; Estimated Glomerular Filt Rate > 60; Glucose 117 mg/dL (65-110); Potassium 4.1 mmol/L (3.4-5.0); Sodium 136 mmol/L (137-145)
[2025-05-05 23:39] LABS: INR 1.1; Partial Thromboplastin Time 31.1 Seconds (22.3-36.8); Prothrombin Time 14.2 Seconds (11.1-14.7)
[2025-05-06 00:37] VITALS: BP 150/77; PULSE 64; RESP 22; O2SAT 97
--- NOTE | 2025-05-06 00:52 | ED_ITS ---
HPI - Extremity Problem General Chief complaint: Extremity Problem,Nontraumatic Stated complaint: R calf pain, r/o DVT Time Seen by Provider: 05/06/25 00:47 History of Present Illness HPI Narrative: Patient is a 40-year-old female who presents emergency department this evening complaining of right calf pain. She states that she had a sudden onset wash she was going up the stairs. Patient admits that while she was she had gestational diabetes and AFib and was placed on Lovenox but after she delivered they took her off of it because her Wilner Vasc score was low but this still concerns her that she might be at risk for blood clots. Denies any chest pain shortness of breath. Noted his symptoms or concerns at this time. Related Data Home Medications ?Medication ?Instructions ?Recorded ?Confirmed ?Last Taken ?Type vits no.126-ferrous fum tablet PO 06/05/24 04/16/25 Unknown History 28 mg iron-folic acid 800 mcg tablet (Classic ) flecainide 50 mg tablet mg PO 09/19/24 04/16/25 Unknown History magnesium oxide 400 mg (241.3 mg mg PO 09/19/24 04/16/25 Unknown History magnesium) tablet Allergies Allergy/AdvReac Type Severity Reaction Status Date / Time Sulfa (Sulfonamide AdvReac Mild Hives Verified 05/06/25 00:41 Antibiotics) tramadol AdvReac Mild Hives Verified 05/06/25 00:41 Review of Systems 2 Review of Systems: All systems are reviewed and are negative unless stated otherwise in the HPI. [facility] Past Medical History Medical History (Updated 05/06/25 @ 00:52 by Ryan Rowe MD) Hypertension Insulin resistance Surgical History Surgical History (Updated 04/16/25 @ 09:25 by CHRIS Deras) Hx of section 01/11/25 Hx of breast surgery 2020 - bilateral breast tissue removal from bilateral axillary region History of appendectomy 2017 Family History Family History Father Acute myocardial infarction Mother Heart disease Social History Social History Smoking status: Never smoker Second hand tobacco smoke exposure: No Alcohol intake: never Substance use: never Substance use type: does not use Do You Feel Safe in your Home?: Yes Lack of Transportation: No Lack of Food: Never True Current Housing: I Have Housing Concerned About Future Housing: No Difficulty Paying Gas/Electric Bills: No Difficulty Paying for Meds: No Currently Unemployed: No Education: Decline to Answer Difficulty w/ Childcare or Family Care: No Occupation/Education: occupation 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 HEENT: PERRL, no rhinorrhea, no post nasal drip, oropharynx clear. Neck: Trachea midline, no JVD, no lymphadenopathy. Cardiovascular: Regular rate and rhythm, no murmurs, rubs or gallops, no peripheral edema. Respiratory: Clear to auscultation bilaterally, no tachypnea, no wheezing, no rhonchi, no rubs, no respiratory distress. Abdomen: Soft, nontender, nondistended, no rebound, no guarding, no peritoneal signs. Musculoskeletal: No joint swelling or deformity, normal muscle tone, no calf swelling or redness. Skin: No rashes or petechia, no signs of infection. Psychiatric: Alert and oriented, normal behavior and judgment for situation. Neurological: Alert and oriented to person, place, and time. Follows all commands. No focal deficits, speech is clear and fluent. Course Vital Signs Vital signs: Vital Signs Temperature 98.2 F 05/05/25 22:48 Pulse Rate 67 05/05/25 22:48 Respiratory Rate 18 05/05/25 22:48 Blood Pressure 155/91 H 05/05/25 22:48 Pulse Oximetry 98 05/05/25 22:48 Oxygen Delivery Room Air 05/05/25 22:48 Temperature 98.2 F 05/05/25 22:48 Pulse Rate 64 05/06/25 00:37 Respiratory Rate 22 H 05/06/25 00:37 Blood Pressure 150/77 H 05/06/25 00:37 Pulse Oximetry 97 05/06/25 00:37 Oxygen Delivery Room Air 05/05/25 22:48 MDM - Extremity (Nontraumatic) MDM Narrative Medical decision making narrative: The patient was evaluated by myself in the emergency department. History is obtained from patient who is an independent historian and physical exam was performed. External medical records were reviewed at this time. IV was established and pertinent tests were ordered. Laboratory results obtained revealing leukocytosis of 12 otherwise unremarkable. D-dimer normal. Differential diagnosis considerations include musculoskeletal strain, DVT. Comorbidities impacting this visit include history of atrial fibrillation. I have evaluated and discussed social determinants of health with the patient that could potentially impact subsequent diagnosis and treatment plans. On repeat assessment of the patient, reevaluation revealed that the patient is doing well and is in no acute distress. Patient symptoms have improved since she arrived to our emergency department. Repeat vital signs were all reviewed and noted to be stable. Differential diagnosis and treatment plan were discussed with the patient at bedside. Patient agrees with discussion and after shared medical decision making agrees with discharge. All questions were answered to the patient's satisfaction. Patient will follow up with her PCP in 3-5 days. Patient was provided with strict return precautions and instructed to return to the emergency department if any new or worsening symptoms develop. The patient was discharged in stable condition. Lab Data 05/05/25 22:59 05/05/25 22:59 Labs: Lab Results 05/05/25 Range/Units 22:59 WBC 12.0 H (4.5-10.0) K/mm3 RBC 4.92 (4.2-5.4) M/mm3 Hgb 12.5 (12.0-15.0) g/dL Hct 39.8 (37.0-47.0) % MCV 80.9 (80-100) fl MCH 25.4 L (26-34) pg MCHC 31.4 L (32-36) g/dl RDW 15.6 H (11.5-14.5) % Plt Count 436 H (150-375) k/mm3 MPV 8.9 (7.4-10.4) fl Immature Gran % (Auto) 0.2 (0-0.5) % Neut % (Auto) 69.1 (45.5-73.1) % Lymph % (Auto) 20.1 (18.3-44.2) % [place] % (Auto) 9.2 H (2.6-8.5) % Eos % (Auto) 1.2 (0-4.4) % Baso % (Auto) 0.2 (0.2-1.2) % Lymph # (Auto) 2.41 (0.9-3.2) K/mm3 [place] # (Auto) 1.1 H (0.1-0.6) K/mm3 Eos # (Auto) 0.1 (0-0.3) K/mm3 Baso # (Auto) 0.0 (0.0-0.1) K/mm3 Abs Immat Gran (auto) 0.03 (0.00-0.031) K/mm3 Absolute Neuts (auto) 8.3 H (1.3-6.7) K/mm3 Absolute Nucleated RBC 0.000 (0.0-0.012) K/mm3 Nucleated RBC % 0.0 (0.0-0.2) % PT 14.2 (11.1-14.7) Seconds INR 1.1 APTT 31.1 (22.3-36.8) Seconds D-Dimer 0.48 (<0.48) ug/mL Sodium 136 L (137-145) mmol/L Potassium 4.1 (3.4-5.0) mmol/L Chloride 102 (98-107) mmol/L Carbon Dioxide 25 (22-30) mmol/L Anion Gap 9 (4-12) mmol/L BUN 14 D (7-17) mg/dL Creatinine 0.80 (0.7-1.0) mg/dL Estim Creat Clear Calc 103 ml/min Estimated GFR > 60 (59 - ) Glucose 117 H (65-110) mg/dL Calcium 9.4 (8.4-10.2) mg/dL Discharge Plan Discharge Clinical Impression: Pain of right calf Patient Disposition: Home Condition: Improved Instructions: Antibiotic Form, Leg Sprain (ED) Additional Instructions: Please follow-up with the family doctor within the next 3-5 days. Return to the emergency department if any new or worsening symptoms develop. Patient Language: Amharic Prescriptions: No Action labetalol 300 mg tablet 300 mg PO Q12H Qty: 90 1RF Classic 28 mg iron- 800 mcg tablet PO magnesium oxide 400 mg (241.3 mg magnesium) tablet PO flecainide 50 mg tablet PO Follow-up/Referrals: Verónica Garrett DO [Primary Care Provider] - 3 Days Time of Disposition: 00:52
== END 2025-05-06 01:08 | disposition home or self-care (01) ==
LOC: ANHED 05-06 00:54
PROVIDERS: Emergency Provider Emergency Medicine; PCP Family Medicine
DX: M79.661 Pain in right lower leg (principal); I10 Essential (primary) hypertension; Z79.899 Other long term (current) drug therapy
CPT/HCPCS: 36415; 80048; 85025; 85380; 85610; 85730; 99283

== ENCOUNTER 2025-05-15 08:45 | Outpatient (RCR) | payer OTHER, SELFPAY ==
--- NOTE | 2025-05-01 16:14 | OTOPEVAL1 ---
Assessment and note entered by Maddison Ann, OT Evaluation Information Assessment Status Evaluation Diagnosis pain in R elbow ICD-10 Condition Codes (OT) Pain in right elbow M25.521 Onset about 7 or 8 years on and off Subjective Information Pt. 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 Pt. recently gave and often carries on R dominant side. Pt. 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 Pt. is fearful of picking up items such as a glass due to fear of dropping and has difficult using a knife for cutting food, feeding her child, difficulty holding phone, and completing daily tasks. Pt. job requires constant manipulation of small objects and lifting heavy items while both sitting and standing, often bending forward over fume betts. Pt. reports it is tender on palpation often wakes up with discomfort due to sleeping on elbow Reported Pain Level Pain Score 8: Self Report Assessment OT Clinical Summary Pt. is 40 year old F, presenting with R elbow pain , positive for Mill's test, consistent with symptoms of lateral epicondylitis. Pt. demonstrates decreased overall strength and functional use in R (dominant) UE, limiting capacity for participation in daily functional activities and work. Pt. will benefit from skilled OT services including therapeutic exercises and activities, manual therapy, and use of therapeutic modalities to increase strength and functional use while decreasing pain. Plan of Care Interventions Therapeutic Exercise,Manual Therapy,Therapeutic Activities,Hot Pack/Cold Pack,Self-Care/Home Management,Ultrasound,Paraffin OT Services Indicated Yes Treatment Frequency and 2 x/wk for 8 visits Duration These treatments will address the objective and functional deficits as defined above. The patient will be advanced safely and appropriately in order for the patient to progress towards his/her prior level of function. Additional exercises will be introduced and as well as a comprehensive home exercise program upon discharge, if needed, ?to ensure carryover of functional gains achieved in the clinic. This treatment plan has been reviewed and agreement upon by the patient.
--- NOTE | 2025-05-01 16:14 | OPREHPOC ---
Outpatient Therapy Plan of Care This is a Multidisciplinary Plan of Care that may contain components documented by all disciplines (PT, OT, and ST.) OT Problem 1 OT Problem #1 Knowledge Deficit OT Goal 1 Goal / Goal Update Pt. will demonstrate independence in HEP Target Visit 8 OT Problem 2 OT Problem #2 Pain OT Goal 1 Goal / Goal Update pt. will report pain < 1/10 6 of 7 days per week with consistent participation in work and home activities Target Visit 16 OT Problem 3 OT Problem #3 Impaired Strength OT Goal 1 Goal / Goal Update Pt. will demonstrate increased strength in R UE for functional activities and pain reduction, as demonstrated by increased of 10 lbs knit tubing dyer strength and 4 lbs pinch strength Target Visit 16
--- NOTE | 2025-05-06 09:17 | PCOTNOTE ---
Patient did not show up for scheduled appointment this date. Called patient and left voicemail regarding missed appointment and reminded her of her next scheduled appointment.
--- NOTE | 2025-06-17 09:54 | OTOPDC ---
Assessment and note entered by Maddison Ann OT Evaluation Information Assessment Status Discharge - Pt Not Present Assessment OT Clinical Summary Pt. referred to occupational therapy services for R lateral epicondylitis. Pt. returned for one additional treatment visit on 05/15/25 then scheduled no additional appointments. Pt. discharged from services on this date. Please refer again if condition persists and pt. seeks additional services. Plan of Care OT Services Indicated No
== END 2025-06-17 11:05 | disposition home or self-care (01) ==
LOC: ANHOT 08:45
PROVIDERS: PCP Family Medicine; Visit Provider Nurse Practitioner
DX: M25.521 Pain in right elbow (principal)
CPT/HCPCS: 97018; 97110; 97112; 97140; 97165

== ENCOUNTER 2025-05-23 09:42 | Emergency (ER) | payer OTHER, SELFPAY ==
--- NOTE | 2025-05-23 09:47 | ED.EAR ---
HPI - Ear Problem General Chief complaint: Ear Stated complaint: EARACHE Time Seen by Provider: 05/23/25 09:44 Source: patient Mode of arrival: ambulatory Limitations: no limitations History of Present Illness HPI Narrative: Patient is a 40-year-old female who presents with right ear pain for 3 days. Patient is 18 weeks . She denies any sore throat, cough, fever, chills, nausea, vomiting, diarrhea. Does report sinus pressure and headaches. MD Complaint: ear pain Related Data Home Medications ?Medication ?Instructions ?Recorded ?Confirmed ?Last Taken ?Type vits no.126-ferrous fum tablet PO 06/05/24 04/16/25 Unknown History 28 mg iron-folic acid 800 mcg tablet (Classic ) flecainide 50 mg tablet mg PO 09/19/24 04/16/25 Unknown History magnesium oxide 400 mg (241.3 mg mg PO 09/19/24 04/16/25 Unknown History magnesium) tablet Allergies Allergy/AdvReac Type Severity Reaction Status Date / Time Sulfa (Sulfonamide AdvReac Mild Hives Verified 05/06/25 00:41 Antibiotics) tramadol AdvReac Mild Hives Verified 05/06/25 00:41 Review of Systems Review of Systems: All systems reviewed & are unremarkable except as noted in HPI and below Constitutional: Constitutional: Denies body ache(s), Denies chills, Denies fever(s), Reports headache(s) and Denies malaise Eyes: Eyes: Denies blurry vision, Denies eye discharge and Denies irritation ENT: Reports otalgia, Reports headache(s), Denies nasal congestion, Denies nasal discharge, Reports sinus pressure and Denies sore throat Cardiovascular: Cardiovascular: Denies chest pain, Denies edema, Denies palpitations and Denies dyspnea on exertion Respiratory: Respiratory: Denies cough and Denies dyspnea on exertion Gastrointestinal: Gastrointestinal: Denies abdominal pain, Denies diarrhea, Denies nausea and Denies vomiting Musculoskeletal: Musculoskeletal: Denies back pain, Denies arthralgias and Denies muscle weakness Integumentary/Breasts: Skin/Breast: Denies pruritus and Denies rash Neurologic: Denies headache(s) Psychiatric: Psychiatric: Reports no additional psychiatric complaints Endocrine: Endocrine: Denies palpitations PMFSH Past Medical History Medical History Hypertension Insulin resistance Surgical History Surgical History Hx of section 01/11/25 Hx of breast surgery 2020 - bilateral breast tissue removal from bilateral axillary region History of appendectomy 2018 Family History Family History Father Acute myocardial infarction Mother Heart disease Social History Social History Smoking status: Never smoker Second hand tobacco smoke exposure: No Alcohol intake: never Substance use: never Substance use type: does not use Do You Feel Safe in your Home?: Yes Lack of Transportation: No Lack of Food: Never True Current Housing: I Have Housing Concerned About Future Housing: No Difficulty Paying Gas/Electric Bills: No Difficulty Paying for Meds: No Currently Unemployed: No Education: Decline to Answer Difficulty w/ Childcare or Family Care: No Occupation/Education: occupation Additional occupation/education comments: [employer] Gender identity (if verbalized by the patient): Female Spiritual care concerns: No Comments At time of signature, agree with nursing past medical, surgical, social and family history. There is no relevant family history pertinent to the presenting complaint? Exam Const: General: cooperative, healthy appearing, no acute distress and well nourished Nutritional Appearance: well nourished Orientation/consciousness: patient oriented x3 Limitations: no limitations HENMT: Head: normal to inspection, normocephalic and atraumatic Ears: hearing grossly normal bilaterally, EAC's normal, no periauricular adenopathy and TM abnormal bulging on the right and erythematous on the right Face/Nose/Sinus: Normal external nose present, Normal nares present, Normal nasal mucous membranes and turbinates present, No nasal discharge present, normal facial exam and sinuses nontender Face and sinus: normal facial exam and sinuses nontender Mouth: Yes Normal oral and palatal mucosa present, Yes lip normal, Yes tongue normal and Yes moist mucous membranes Throat: posterior oropharynx normal, tonsils normal and uvula midline Eyes: General: appearance normal, both eyes and all related structures Alignment and Position: alignment normal and position normal Eyelids: eyelids normal Pupils: Equal, round and reactive pupils present EOM: EOMs intact bilaterally Neck: Neck: normal visual inspection, full ROM, no lymphadenopathy and supple Chest: Chest palpation & inspection: normal inspection of the chest Resp: Effort & Inspection: normal respiratory effort and able to speak in complete sentences Auscultation: clear to auscultation bilaterally, no crackles, no rales, no rhonchi and no wheezes Cardio: Rate: regular rate Rhythm: regular rhythm Heart sounds: S1 normal heart sound present and S2 normal heart sound present Skin: General skin exam: normal color and no rashes or lesions noted Neuro: General: patient oriented x3 and moves all extremities Cranial nerves: Yes Equal, round and reactive pupils present Cognition (Neuro): normal cognition Speech: normal speech Gait exam (Neuro): Normal gait present Extrem: General: normal to inspection and full ROM Psych: Appearance: grossly normal and well kempt Mental Status: mental status grossly normal Speech and movement: Normal speech and movement present Course Course Emergency Course: Patient is aware of diagnosis, understands and agrees to treatment plan.? Anticipatory guidance given.? Patient agrees to follow-up as directed and is aware of reasons to seek care at the emergency department.? Portions of this record may have been created with voice recognition software? Level of Care: Express Care Visit Vital Signs Vital signs: Vital Signs Temperature 35.9 C L 05/23/25 09:59 Pulse Rate 62 05/23/25 09:59 Respiratory Rate 16 05/23/25 09:59 Blood Pressure 139/80 05/23/25 09:59 Pulse Oximetry 98 05/23/25 09:59 Temperature 35.9 C L 05/23/25 09:59 Pulse Rate 62 05/23/25 09:59 Respiratory Rate 16 05/23/25 09:59 Blood Pressure 139/80 05/23/25 09:59 Pulse Oximetry 98 05/23/25 09:59 Reviewed Medical Decision Making MDM Narrative Medical decision making narrative: Pt well hydrated appearing, in no respiratory distress, hemodynamically stable. Recommend supportive care. The patient is stable at time of discharge the clinical impression was discussed and the patient was given the opportunity to ask questions, which were addressed as completely as possible given the information available at present. Anticipatory guidance and return to care precautions were discussed and the importance of primary care follow-up was stressed and encouraged. The patient voiced understanding of the plan, indications to return, and the need for follow-up. Exam findings show no acute concerns or changes Patient is appropriate for outpatient treatment and follow-up. Differential diagnosis considered: otitis media, otitis externa, otitis effusion, foreign body, cerumen impaction, viral syndrome Medical Records Medical records reviewed: Yes I reviewed the external patient's medical records. Vital Signs Vital Signs: Vital Signs Temperature 35.9 C L 05/23/25 09:59 Pulse Rate 62 05/23/25 09:59 Respiratory Rate 16 05/23/25 09:59 Blood Pressure 139/80 05/23/25 09:59 Pulse Oximetry 98 05/23/25 09:59 Temperature 35.9 C L 05/23/25 09:59 Pulse Rate 62 05/23/25 09:59 Respiratory Rate 16 05/23/25 09:59 Blood Pressure 139/80 05/23/25 09:59 Pulse Oximetry 98 05/23/25 09:59 Discharge Plan Discharge Clinical Impression: Otitis media Qualifiers: Otitis media type: suppurative Chronicity: acute Laterality: right Recurrence: non-recurrent Spontaneous tympanic membrane rupture: without spontaneous rupture Qualified Code(s): H66.001 - Acute suppurative otitis media without spontaneous rupture of ear drum, right ear Patient Disposition: Home Condition: Stable Instructions: Ear Infection (ED) Additional Instructions: Take antibiotics as directed. Recommend antihistamine such as Benadryl at night time and Zyrtec or Candy during the day until symptoms improve Flonase nasal spray, 1 spray in each nostril once daily until symptoms improve Also, recommend symptomatic treatment includes: rest, fluids, and increase humidity of the air at home. Recommend Acetaminophen as directed on the bottle to reduce fever, pain Please schedule a follow-up visit with your personal physician for further evaluation and treatment within 3-5days. If your symptoms persist, change or worsen significantly before you can contact your personal physician then please, without delay, go to the emergency department for further evaluation. Patient Language: Hebrew Prescriptions: New cefdinir 300 mg capsule 300 mg PO Q12H 7 Days Qty: 14 0RF No Action labetalol 300 mg tablet 300 mg PO Q12H Qty: 90 1RF Classic 28 mg iron- 800 mcg tablet PO magnesium oxide 400 mg (241.3 mg magnesium) tablet PO flecainide 50 mg tablet PO Follow-up/Referrals: Verónica Garrett DO [Primary Care Provider] - 3 Days Time of Disposition: 10:19
[2025-05-23 09:59] VITALS: BP 139/80; PULSE 62; RESP 16; TEMP 35.9; O2SAT 98
== END 2025-05-23 10:24 | disposition home or self-care (01) ==
PROVIDERS: Emergency Provider Nurse Practitioner Family; PCP Family Medicine
DX: H66.001 Acute suppurative otitis media without spontaneous rupture of ear drum, right ear (principal); I10 Essential (primary) hypertension
CPT/HCPCS: 99213; G0463

== ENCOUNTER 2025-06-08 07:14 | Outpatient (CLI) | payer OTHER, SELFPAY ==
--- OUTSIDE RECORDS SUMMARY | 2025-06-08 07:18 | XMS_ITS | Clinical Summary ---
Author Organization [facility] [address] Address [address] [place] [address] Care Team Providers Care Salmon Troll Fisher Name Role Phone Verónica Garrett DO Primary Care Provider [phone] No, Physician Unavailable Jean Erickson MD Unavailable [phone] Debbie Farias MD Unavailable [phone] Allergies Active Allergy Reactions Criticality Noted Date Comments Sulfa (Sulfonamide Antibiotics) Hives,Other (See comments) Medium 11/17/2022 Tramadol Hives,Other (See comments) Medium 3 Medications PNV no.95/ferrous fum/folic ac ( ORAL) Take by mouth Active flecainide (TAMBOCOR) 50 mg tablet Take 1 tablet (50 mg total) by mouth 2 (two) times a day 60 tablet 09/05/2024 5 Active enoxaparin (LOVENOX) 100 mg/mL syringe Inject 1 mL (100 mg total) under the skin every 12 (twelve) hours 60 mL 10/29/2024 6 Active hydrocortisone (ANUSOL-HC) 2.5 % rectal cream Insert into the rectum 2 (two) times a day 30 g 2 01/09/2025 Active ibuprofen (ADVIL,MOTRIN) 600 mg tabletIndicatio ns:Anti-inflamm atory,Pain Take 1 tablet (600 mg total) by mouth every 6 (six) hours as needed for pain 60 tablet 01/14/2025 Active magnesium oxide (MAG-OX) 400 mg (241.3 mg elemental magnesium) tabletIndicatio ns:hypomagnesem ia Take 2 tablets (800 mg total) by mouth nightly 90 tablet 01/16/2025 6 Active ferrous sulfate 325 mg (65 mg of elemental iron) tabletIndicatio ns:Iron Deficiency Anemia Take 1 tablet (325 mg total) by mouth every other day 15 tablet 11 01/18/2025 6 Active labetaloL (NORMODYNE,WOODS DATE) 300 mg tablet Take 2 tablets (600 mg total) by mouth 2 (two) times a day 120 tablet 5 02/21/2025 5 Active oxyCODONE (ROXICODONE) 5 mg immediate release tabletIndicatio ns:Pain Take 1 tablet (5 mg total) by mouth every 8 (eight) hours as needed for pain (Severe pain) 6 tablet 03/19/2025 Active Active Problems Problem Noted Date Diagnosed Date High risk medication use 02/27/2025 Encounter for routine follow-up 01/11 Overview (01/16/2025): # ID: Afebrile. No signs/symptoms of infection. #shingles in 3T - rash on mons/back early feb + Varicella, took acyclovir 800mg 5 times daily x 7 days with resolved rash. # Heme: EBL 800 mL. Hemodynamically stable. POD1 Hb 10.4 # CV/Pulm: #cHTN - diagnosed this . labetalol 800mg TID, increased 3/25 am due to persistent MR BPs and intermitted SR. Added nifedipine 30 mg daily 01/15 pm iso ongoing high MRBPs. Asxs. CBC/CMP/UPC wnl. Repeat labs notable for 01/14 AST 53 > 01/15 61 Enrolled in remote blood pressure monitoring. #Atrial flutter with RVR - one episode at 6 weeks of . Subsequent admission for atrial fibrillation with RVR. Current regimen flecainide and therapeutic lovenox due to CHADS-VASC 3. WHO class I. Follows with EP Dr. Weiner. Telemetry intrapartum and , discontinued on patient request, counseled on risk. Restarted lovenox 100 mg BID given stable from bleeding standpoint. Duration to be determined per cardiology (has appt 01/29). #GI/: Tolerating PO. Voiding spontaneously. #early GDMA2 vs DM2- had history of prediabetes on metformin, had stopped due to side effects. Has been on 58 glargine during . Plan to treat as GDM. Fasting BG PPD1: 108. Recommend 2 hour/75g OGTT at visit. BG well controlled on no insulin . #Pain: Controlled with above regimen. #Psych: #depression - previously on cymbalta, currently no meds. Has had worsening mood this due to complications. Previously counseled on meds and therapy, offered PBHS. Recommend SW consult . #MOF: Plans to breastfeed. Urine drug screen not indicated. Patient informed of results: N/A. #MOC: declines sp counseling . #Post DVT prophylaxis: lvnx as above # Disposition: Follow up scheduled with M. Desires discharge pending blood pressure control Service Coverage These phones are service phones and carried 16/05 in house: R1 (first call) [phone] R1 alt (second call) [phone] R4 (Chief) [phone] Encounter for induction of labor 01/10/2025 Overview (01/10/2025): Batsheva Gutierrez is a 39 y.o. female at 37w0d who is dated by 1st trimester ultrasound and is being admitted for an induction of labor secondary to GDMA2, cHTN, recurrent decels . Admit to L&D: Labs: CBC and T&S pending. Plan pending continued monitoring and discussion with pt. FWB: Continuous monitoring. Reactive NST. ID: 3rd trimester HIV (>28 wga) negative on 11/28/24. GBS negative on 12/07/24 . RPR on admission: pending. History of genital HSV or HSV 1/2 seropositivity: No. Membrane Status: intact. Indications for UDS: none. Verbal consent obtained for UDS: Not indicated. MOF: Plans to breastfeed. Urine drug screen not indicated. Patient informed of results: N/A. MOC: declines . Pain management: Desires epidural. Post DVT prophylaxis: lvnx pp as below: Other: #early GDMA2 vs DM2- had history of prediabetes on metformin, had stopped due to side effects. Has been no 58 glargine during . Plan to treat as GDM, for OB insulin GTT intrapartum. Fasting BG PPD2. Recommend 2 hour/75g OGTT at visit. #cHTN - diagnosed this . labetalol 300mg TID. Asxs. CBC/CMP/UPC pending. #Atrial flutter with RVR - one episode at 6 weeks of . Subsequent admission for atrial fibrillation with RVR. Current regimen flecainide and therapeutic lovenox due to CHADS-VASC 3. WHO class I. Follows with EP Dr. Weiner. OVERALL ESTIMATED RISK OF MAJOR CARDIAC EVENT: 15%. Most likely adverse cardiac events include: arrhythmia. Telemetry intrapartum and . Recommended hold lovenox 24 hours prior to admission-- confirmed last dose taken > 24h prior to admission. Restart lovenox 100 BID pp when stable from bleeding standpoint and >4 hours after epidural and >24 hours after epidural placement. Duration to be determined per cardiology : needs GURDEEP eval. #shingles in 3T - rash on mons/back early nov + Varicella, took acyclovir 800mg 5 times daily x 7 days with resolved rash. No sxs on admission. #AMA - s/p LR NIPT, on ASA 81. #depression - previously on cymbalta, currently no meds. Has had worsening mood this due to complications. Previously counseled on meds and therapy, offered PBHS. Recommend SW consult . Non-reassuring cardiotocographic tracing 0 12/07/2024 Atrial flutter with rapid ventricular response 1 Overview (01/07/2025): History: - presented to OSH at 6 weeks with palpitations. Initial EKG showed A-flutter with rapid ventricular response. She was given adenosine, which did not convert her to sinus rhythm, then 3 doses Lopressor which eventually did convert her. She has not had a recurrence of atrial flutter since that additional episode. She does not have a history of arrhythmia or cardiac surgery. - Echo 06/01/24: unremarkable - Admitted to [place] for recurrent Afib with RVR: converted to NSR after multiple IV pushes of metoprolol. Current reigmen: Flecainide and therapeutic Lovenox given CHADS-VASC of 3 Previously counseled Maternal Risk Assessment: WHO Class: I OVERALL ESTIMATED RISK OF MAJOR CARDIAC EVENT: 15% Most likely adverse cardiac events include: arrhythmia Plan: [x] Continue care with maternal cardiology- next appt and echo 11/08 [x] Continue care with EP Dr. Weiner- last visit 09/12 [x] Continue therapeutic Lovenox- 10/03 anti xa- 0.54 (discussed with Dr. Farias and VM left for pt recommending repeat labs in 2 weeks) discussed ice prior and after infection [x] Continue Flecainide [] Sleep medicine for GURDEEP workup- pt needs diagnostic testing [] telemetry in labor and on [] Reviewed recommendation to hold lovenox 24 hours prior to IOL. Last dose to be Tuesday morning. Reviewed low threshold to hold lovenox in days leading up to IOL as cannot have epidural for 24 hours after last lovenox dose. [] Restart lovenox when stable from bleeding standpoint and >4 hours after epidural and >24 hours after epidural placement. Duration to be determined per cardiology. Assessment & Plan (10/03/2024 9:27 AM ASSOCIATE PROFESSOR COMPUTER SCIENCE): Reports a few episodes this week and she has communicated this to cards. She denies chest pain or SOB and states it resolved quickly. Hospital precautions reviewed. Pt having a very hard time with her lovenox. Instructions and teach information reviewed. Antixa ordered for today as her one yesterday was not timed appropriately. She is worried her blood is too thin. Continue current dose and repeat labs. Emotional support provided. Hospital precautions reviewed for any change in symptoms. Pt knows to hold lovenox and present to the [facility] with concerns. Assessment & Plan (09/07/2024 3:12 PM ASSOCIATE PROFESSOR COMPUTER SCIENCE): History: presented to OSH at 6 weeks with palpitations. Initial EKG showed A- flutter with rapid ventricular response. She was given adenosine, which did not convert her to sinus rhythm, then 3 doses Lopressor which eventually did convert her. She has not had a recurrence of atrial flutter since that additional episode. She does not have a history of arrhythmia or cardiac surgery. - Echo 06/01/24: unremarkable - Admitted to [place] for recurrent Afib with RVR: converted to NSR after multiple IV pushes of metoprolol. Started on Flecainide and therapeutic Lovenox given CHADS- VASC of 3. Stable echo Today reports no palpitations/chest pain/shortness of breath. Endorses compliance with prescribed medications. Plan: [] Maternal cardiology next 09/12 [] Continue therapeutic Lovenox [] Continue Flecainide [] Sleep medicine for GURDEEP workup (referral placed from inpatient) [] telemetry in labor Resolved Problems Problem Noted Date Diagnosed Date Resolved Date Shingles rash 12/04/2024 01/24/2025 Overview (12/26/2024): Pt with painful rash on her mons and right buttock that started Tuesday. She has a history of shingles in the past. Varicella IgG positive Pictures in media Swabs sent 12/04/2024 but little fluid obtained Rx sent for acyclovir 800mg 5 times daily x7 days- resolved Assessment & Plan (12/04/2024 10:17 AM ASSOCIATE PROFESSOR COMPUTER SCIENCE): Case discussed with Dr. Gillette and Dr. Jama. Risk to fetus is very low as this occurred in the 3T and varicella IgG positive at the start of . We discussed that we do not anticipate this affecting MOD. Swab sent 12/04/2024 but little fluid collected. Recommend not touching the rash and keeping it clean and dry. Work note provided for the rest of the week. She will discuss with her [facility] and notify us if she needs additional information. Rx sent. Pt knows to call with significant pain and will rx gabapentin. Depression affecting , antepartum 10/03/2024 01/24/2025 Overview (10/03/2024): Previously treated with Cymbalta years ago. Currently no meds. Having a very hard time with her high risk . Emotional support provided. Plan: Information sent for [facility]- strongly encouraged she consider Discussed benefits of meds if needed Continue to monitor closely Assessment & Plan (12/26/2024 10:02 AM ASSOCIATE PROFESSOR COMPUTER SCIENCE): Emotional support provided. Assessment & Plan (10/03/2024 9:31 AM ASSOCIATE PROFESSOR COMPUTER SCIENCE): Emotional support provided. Pt knows to call anytime with questions or concerns. Discussed the importance of a well treated mom and encouraged she consider meds and therapy. Gestational diabetes mellitu s (GDM) in second trimester 09/07/2024 01/24/2025 Overview (01/07/2025): History: Patient with A1c 6.5, Previously on metformin but self-discontinued due to side effects. Early glucose tolerance test 160 (06/30/2024) 3 hour GTT (visualized on her phone) 126/233/166/74 Early GDMA vs. T2DM *Send ALL blood sugar logs to [place] for review* Current regimen: 12/25/24 lantus 60u qHS - 01/07: reports appropriate glycemic control Plan [x] Weekly review of BS logs [x] Serial growth US [x] Twice weekly surveillance at 32 weeks if requiring medications [] Delivery by 37 week per cHTN problem [] 2 hour/75g OGTT at visit Assessment & Plan (12/26/2024 10:01 AM ASSOCIATE PROFESSOR COMPUTER SCIENCE): Recommend increasing her insulin in the setting of elevated fastings but pt declines. Will continue close monitoring. Assessment & Plan (11/28/2024 8:57 AM ASSOCIATE PROFESSOR COMPUTER SCIENCE): BS improved but will continue to titrate as fastings are still elevated. Assessment & Plan (11/15/2024 12:37 PM ASSOCIATE PROFESSOR COMPUTER SCIENCE): BS log reviewed with continued elevated fastings. Discussed importance of checking a 2 am (pt does not go to bed until 11 pm and will plan to check 4 am). Discussed possibly also checking 8 hours after eating instead of 10 hours. Plan for 1 RN to management most of her messages moving forward if possible. Assessment & Plan (10/03/2024 9:25 AM ASSOCIATE PROFESSOR COMPUTER SCIENCE): BS reviewed with elevated fastings. Pt eats dinner late and then goes to bed and therefore does not do a bedtime snack. Hypoglycemic precautions reviewed. Pt knows to check bs with symptoms of hypoglycemia, treat and notify us if <70 Assessment & Plan (09/07/2024 3:20 PM ASSOCIATE PROFESSOR COMPUTER SCIENCE): History: Patient with A1c 6.5, Previously on metformin but self-discontinued due to side effects. Early glucose tolerance test 160 (06/30/2024) 3 hour GTT (visualized on her phone) 126/233/166/74 Early GDMA vs. T2DM Counseling Counseled patient that gestational diabetes (GDM) is a condition in which carbohydrate intolerance develops in causing elevated blood glucose or blood sugar. Discussed with patient the maternal and complications of gestational diabetes including increased risks of preeclampsia, need for delivery, macrosomia, hypoglycemia, hyperbilirubinemia, shoulder dystocia, trauma, and stillbirth. Women with GDM have an increased risk of developing diabetes later in life (up to 70% within 22-28 years after ) and that offspring may be at a higher risk of developing obesity and diabetes. Discussed that gestational diabetes may be managed with diet an lifestyle changes, however frequently requires use of medications such as insulin. Also discussed recommendation for monitoring blood glucose values fasting and 1 hour after every meal with goal values of 95 mg/dL or less fasting and 140 mg/dL or less 1-hour postprandial. Treating gestational diabetes can reduce the risk of serious complications associated with GDM. 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 She works from 12pm-8:30pm, which may affect her logs. Serial growth ultrasounds per chronic hypertension Atrial fibrillation 09/04/2024 09/07/20 24 Prediabetes in mother during 08/09/2024 09/07/2024 Overview (08/10/2024): History: Patient with A1c 6.5, Previously on metformin but self discontinued due to side effects. Early glucose tolerance test 160 (06/30/2024) 3 hour gtt: pending We discussed recommendation for 3hr GTT. We briefly discussed risk of gestational diabetes vs pregestational diabetes. Plan : [] Recommend continuing to hold metformin. Follow up 3 hr GTT. If 3hr GTT is positive, we discussed following blood sugars and if medication is needed can restart metformin or start insulin. Chronic hypertension affecting 07/31/2024 01/24/2025 Overview (01/07/2025): Diagnosed with cHTN at the start of this during admission for aflutter. No medications prior to . S/p Counseling 08/09/2024 Current regimen 01/02/2025 Labetalol 300mg BID Plan: [x] Low dose ASA [x] Baseline labs (CBC, CMP done, UP:C at next visit) [x] Baseline EKG [x] Baseline ECHO [x] Growth scans starting at 24 weeks every 4 weeks, complete AGA (2648g 23%ile on 01/07) [x] surveillance starting at 32 weeks- complete with normal BPP today on 01/07 [] Delivery at planned for 37w for cHTN, diabetes and recurrent decels Assessment & Plan (09/07/2024 3:03 PM ASSOCIATE PROFESSOR COMPUTER SCIENCE): Diagnosed with cHTN at the start of this during admission for aflutter. No medications prior to . Current regimen 08/10/24 Labetalol 300mg BID S/p Counseling 08/09/2024 Plan: [x] Low dose ASA [] Baseline labs (CBC, CMP done, UP:C at next visit) [x] Baseline EKG [x] Baseline ECHO [] Growth scans starting at 24 weeks every 4 weeks [] surveillance starting at 32 weeks [] Delivery at 38 - 39 6/7 weeks is recommended, although we discussed the possibility of earlier delivery for uncontrolled hypertension or pre-clampsia. AMA (advanced maternal age) primigravida 35+, second trimester 07/31/2024 01/24/2025 Overview (10/03/2024): Previously counseled Plan: [x] NIPT- low risk [x] ASA 81 mg daily Supervision of high-risk pre gnancy, third trimester 07/31/2024 01/24/2025 Overview (01/08/2025 7:45 AM CDT): >>OVERVIEW FOR SUPERVISION OF HIGH-RISK , SECOND TRIMESTER WRITTEN ON 01/07/2025 2:33 PM BY LIONEL SALCEDO MD [x] Full MFM Care [x] Blue Team [] or Medicare Insurance [x] Dating Criteria: US 06/13/24 with RASHAD 01/31/25, 6w6d US [x] Labs: Rh [A+], Ab [negative], Rubella [immune], HIV [non-reactive], HepBSAg [non-reactive], RPR [non-reactive], Hep C [not done], Varicella [positive], GC/CT [negative/negative] [x] Aneuploidy: NIPT low risk [x] Carrier Screening: CF negative, SMA negative [x] CBC/Hgb: 12.5/38.0/plt 388 [x] Early 1hr GTT 06/30/24: GTT 160, A1c 6.5 [x] UCx: 06/30/24: negative [x] Pap: 06/08/23: NILM; HPV negative (Care Everywhere) [x] Flu Shot (Jun-Sep): [x] COVID counseled 09/07/24 [x] LD ASA (if indicated) [x] [facility] referral (if indicated)- info provided 10/03/2024 2nd Tri Labs: [x] Anatomy ultrasound: compete and wnl [x] CBC at 24-28wk [x] Tdap (27-36wks): 11/28/2024 LE 3rd Tri Labs: [x] CBC/HIV/RPR: 11.8/35.8/383 HIV [NR] RPR [NR] [x] GBS: negative 12/07 [x] testinx/weekly starting at 32 weeks- scheduled Counseling [x] MOD: IOL at 37 weeks scheduled 01-10-25 at 0530, letter sent [x] Place of delivery: [facility] [x] Epidural: desires [x] Blood Products: willing to accept [] Stop ASA [x] MOC: partner vasectomy [x] Method of feeding: breast [x] Making Department Preparer: [x] PP Depression Discussed: Plans to bring a plan for review at time of IOL Assessment & Plan (01/08/2025 7:45 AM CDT): >>ASSESSMENT AND PLAN FOR SUPERVISION OF HIGH-RISK , SECOND TRIMESTER WRITTEN ON 09/07/2024 3:20 PM BY MORENO GILLETTE MD Received flu shot. Counseled on COVID vaccine. Patient expressing desire for transfer of care for delivery at [facility] given recurrent Afib: we encouraged her to discuss this with her RE ETCHER. Will likely be a full transfer to our practice at next visit. Encounters Date Type Department Care Team Description 03/18/2025 10:54 PM CDT - 03/19/2025 12:48 AM CDT Emergency [facility] Emergency Department [address] [place] [id number] Lacey Davies MD Intractable left heel pain (Primary Dx) Discharge Disposition: Discharge to home or self care from Last 3 Months Immunizations Immunization Administration Dates Next Due Hep B, Adolescent or Pediatric 03/04/2003,2001,07/02/2002 Influenza, Quadrivalent, Spl it, Preservative Free, Intramuscular 08/01/2023 Influenza, Trivalent, Preser vative Free, Intramuscular 07/25/2013 Influenza, Unspecified 08/30/2003 MMR 01/16/2025(Deferred: No longer n eeded) Tdap 11/28/2024,04/23/2013 Varicella 01/16/2025(Deferred: No longer n eeded) Surgical History Surgery Date Site/Laterality Comments APPENDECTOMY 2018 Medical History Medical History Date Comments atrial fibrillation Chronic hypertension Sleep apnea 09/03/24 Diabetes mellitus (HCC) 09/03/2024 Family History Medical History Relation Name Comments Arrhythmia Father Hypertension Father Relation Name Status Comments Father Social History Tobacco Use Types Packs/Day Years Used Date Smoking Tobacco: Never Passive Smoke Exposure: Never Smokeless Tobacco: Never Tobacco Cessation:Counseling Given: Not Answered Social Connection and Isolation Panel Answer Date Recorded In a typical week, how many times do you talk on the phone with family, friends, or neighbors? More than three times a week 01/12/2025 How often do you get togethe r with friends or relatives? More than three times a week 01/12/2025 How often do you attend chur ch or orthodox services? Never 01/12/2025 Do you belong to any clubs o r organizations such as restorationism groups, unions, fraternal or athletic groups, or school groups? No 01/12/2025 How often do you attend meet ings of the clubs or organizations you belong to? Never 01/12/2025 Are you , , di vorced, , never , or living with a partner? 01/12/2025 Overall Financial Resource Strain (CARDIA) Answe r Date Recorded How hard is it for you to pa y for the very basics like food, housing, medical care, and heating? Not very hard 01/12/2025 PHQ-2 Answer Date Recorded PHQ-2 Total Score (If total score is 3 or more points, staff should administer the PHQ-9) 0 06/22/2023 Hunger Vital Sign Answer Date Recorded Within the past 12 months, y ou worried that your food would run out before you got the money to buy more. Never true 01/13/20 25 Within the past 12 months, t he food you bought just didn't last and you didn't have money to get more. Never true 01/12/2025 PRAPARE - Transportation Answer Date Re corded In the past 12 months, has l ack of transportation kept you from medical appointments or from getting medications? No 12/23 In the past 12 months, has l ack of transportation kept you from meetings, work, or from getting things needed for daily living? No 01/12/2025 [place] Depression Scale Answer Date Recorded [place] Depression Scale Total 7 02/21/2025 The thought of harming myself has occurred to me . Never 02/21/2025 Housing Stability Vital Sign Answer Jerman e Recorded In the last 12 months, was t here a time when you were not able to pay the mortgage or rent on time? No 01/12/2025 In the past 12 months, how m any times have you moved where you were living? 0 01/12/2025 At any time in the past 12 m [facility], were you homeless or living in a care home (including now)? No 01/12/2025 Personal Safety Answer Date Recorded Have you ever been in or are you currently in a harmful physical or emotional relationship or is someone making you feel afraid or unsafe? Denies 03/18/2025 Comments No Sex and Gender Information Value Date Recorded Sex Assigned at Not on file Legal Sex Female 2:06 PM CDT Gender Identity Not on file Sexual Orientation Not on file Obstetrics History Para Term AB IAB SAB Ectopic Multiple Livin g Live Births 1 1 1 0 1 1 Date Outcome GA Total Labor Labor/2nd/3rd Weight Sex Type Anes PTL Kelly A1 A5 Name Clin 2024 Term 37w 1d 0h 03m 0h 03m 2.65 kg (5 lb 13.5 oz) F C-Sec tion Epidur al N Livin g 8 9 Tucker scales, Ariella sa, CNM Complications: Intolera nce Delivery Location:[facility] ([facility]) Last Filed Vital Signs Vital Sign Reading Time Taken Comments Blood Pressure 119/71 03/19/2025 12:25 AM CDT Pulse 60 03/19/2025 12:25 AM CDT Temperature 36.7 C (98 F) 03/18/2025 10:45 PM CDT Respiratory Rate 16 03/19/2025 12:25 AM CDT Oxygen Saturation 98% 03/19/2025 12:25 AM CDT Inhaled Oxygen Concentration - - Weight 119.7 kg (264 lb) 03/18/2025 10:45 PM CDT Height 167.6 cm (5' 6) 02/27/2025 10:03 AM CDT Body Mass Index 42.61 02/27/2025 10:03 AM CDT Plan of Treatment Health Maintenance Due Date Last Done Comments Cervical Cancer Screening 1986 Varicella Vaccines (1 of 2 - 13+ 2-dose series) 1999 Regular Well Visit/Exam 18-64 2004 HPV Vaccines (1 - 3-dose SCDM series) 2013 Influenza Vaccine (#1) 2025 , 07/25/2013, 08/30/2003 Depression Screening 02/21/2026 02/21/2025, 06/22/2023, 06/16/2023, Additional history exists DTaP/Tdap/Td Vaccine (3 - Td or Tdap) 11/28/2034 11/28/2024, 04/23/2013 Hepatitis B Screening Completed 03/04/2003 , 09/07/2002, 07/02/2002 Hepatitis C Screening Completed 12/07/2024 Pneumococcal vaccine <65 Aged Out No longer eligible based on patient's age to complete this topic Procedures Procedure Name Priority Date/Time Associated Diagnosis Comments XR FOOT LEFT 3 OR MORE VIEWS ED 03/18/2025 11:33 PM CDT HEPATITIS C ANTIBODY Routine 12/07/2024 10:39 AM ASSOCIATE PROFESSOR COMPUTER SCIENCE from Last 3 Months or Most Recently Relevant to Health Maintenance Results * XR Foot Left 3 or More Views (03/18/2025 11:33 PM CDT) Anatomical Region Laterality Modality Lower Extremities, Foot Left Computed Radiography 03/19/2025 12:2 6 AM CDT Narrative 03/19/2025 12:27 AM CDT EXAM DESCRIPTION: XR FOOT LEFT 3 OR MORE VIEWS REASON FOR STUDY: heel pain Pt states was walking a felt a pop around the heel area of the left foot, pt states now unable to bear weight, today TECHNIQUE: Three radiographic views of the left foot . COMPARISON: None. FINDINGS: BONES: There is no cortical discontinuity or trabecular irregularity to suggest fracture. The bones are in normal alignment. SOFT TISSUES: There is soft tissue swelling over the dorsum of the foot. IMPRESSION: No acute osseous abnormality. THIS IS AN ELECTRONICALLY VERIFIED FINAL REPORT 03/19/2025 12:27 AM - Electronically signed by Yasmeen Luther M.D. SN: Report ID: [id number] Reading Location: [id number] Procedure Note Yasmeen Luther MD - 03/19/2025 EXAM DESCRIPTION: XR FOOT LEFT 3 OR MORE VIEWS REASON FOR STUDY: heel pain Pt states was walking a felt a pop around the heel area of the leftfoot, pt states now unable to bear weight, today TECHNIQUE: Three radiographic views of the left foot . COMPARISON: None. FINDINGS: BONES: There is no cortical discontinuity or trabecular irregularity to suggest fracture. The bones are in normal alignment. SOFT TISSUES: There is soft tissue swelling over the dorsum of the foot. IMPRESSION: No acute osseous abnormality. THIS IS AN ELECTRONICALLY VERIFIED FINAL REPORT 03/19/2025 12:27 AM - Electronically signed by Yasmeen Luther M.D. SN: SN Report ID: [id number] Reading Location: [id number] us Lacey Davies MD IMG XR PROCEDURES Final Result * Hepatitis C antibody Blood (12/07/2024 10:39 AM ASSOCIATE PROFESSOR COMPUTER SCIENCE) Hep C Ab Nonreactive Nonreactive Comment:Antibodies to HCV no t detected. Does NOT exclude the possibility of recent exposure to HCV. Current interpretive data was last revised on 22 Blood 12/07/2024 10:3 9 AM ASSOCIATE PROFESSOR COMPUTER SCIENCE 12/07/2024 10:50 AM ASSOCIATE PROFESSOR COMPUTER SCIENCE us Daja Hung NP LAB MICROBIOLOGY - GENERAL ORDERABLES Final Result [facility] Department [place] [address] from Last 3 Months or Most Recently Relevant to Health [place] [address] [facility] [employer] [employer] Address: [address] [place] [address] [facility] [employer] Address: [address] [place] [address] [employer] [facility] [facility] [employer] Address: [address] [place] [address] Advance Directives For more information, please contact: [phone] * Full Code (Latest Code Status on File) Date Activated Date Inactivated Comments 01/11/2025 5:09 AM 01/16/2025 10:47 PM * Full Code Date Activated Date Inactivated Comments 01/10/2025 6:11 AM 01/11/2025 5:09 AM Full CPR in case of cardiopulmonary arrest * Full Code Date Activated Date Inactivated Comments 12/25/2024 1:49 PM 12/25/2024 8:56 PM * Full Code Date Activated Date Inactivated Comments 12/07/2024 11:18 AM 12/11/2024 5:00 PM Full CPR in case of cardiopulmonary arrest * Full Code Date Activated Date Inactivated Comments 09/04/2024 2:18 AM 09/05/2024 10:06 PM Care Teams Salmon Troll Fisher Relationship Specialty Start Date End Date Verónica Garrett DO [facility] [address] PCP - General Family Medicine 10/03/24 No, Physician 10/03/24 Jean Erickson MD [address] [address] Consulting Physician Cardiology 09/11/24 Debbie Farias MD [address] [address] Consulting Physician Cardiology 10/05/24
--- OUTSIDE RECORDS SUMMARY | 2025-06-08 07:18 | XMS_ITS ---
Author Organization 1 OF Adam cerna [facility] Address [address] [employer] [address] [address] Care Team Providers Care Corn Cutter Name Role Phone Yue Wagner NP Primary Care Provider Unavailab Bozena Mayfield Unavailable [phone] REASON FOR VISIT LT foot pain Social History Sex Assigned At : Social History Observation Description Sex Assigned At Female Encounters Encounter Location Date Provider Diagnosis 1 OF Adam Arce [facility] [address] [facility] [address] [place] [address] 04/29/2025 Bozena Plata Sprain of left foot, initial encounter S93.602A ; Plantar fasciitis of left foot M72.2 and Left foot pain M79.672 Assessments Encounter Date Diagnosis (ICD Code) Assessment Notes Treatment Notes Treatment Clinical Notes Section Notes 04/29/2025 Sprain of left foot, initial encounter (ICD-10 - S93.602A) Evaluation today included a review of medical history, review of systems, discussion of exam findings, and review of diagnoses and treatment options. I explained that the plantar fascia does appear to be intact. I discussed the possibility of her spraining or potentially tearing a few fibers of the plantar fascia. She was advised to rest, ice and elevate the foot as much as possible. She was advised that she can continue to remain nonweightbearing on the left foot however as tolerated, she can weight-bear in the Cam Walker boot. I discussed that she may have to wear the Cam Walker boot for a few weeks until she feels that she can transition into a sneaker. She will contact her job for form for work restrictions. All questions and concerns were addressed and she can call with any issues prior to her next visit. 04/29/2025 Plantar fasciitis of left foot (ICD-10 - M72.2) 04/29/2025 Left foot pain (ICD-10 - M79.672) Plan Of Treatment Treatment Notes Assessment Notes Sprain of left foot, initial encounter E valuation today included a review of medical history, review of systems, discussion of exam findings, and review of diagnoses and treatment options. I explained that the plantar fascia does appear to be intact. I discussed the possibility of her spraining or potentially tearing a few fibers of the plantar fascia. She was advised to rest, ice and elevate the foot as much as possible. She was advised that she can continue to remain nonweightbearing on the left foot however as tolerated, she can weight-bear in the Cam Walker boot. I discussed that she may have to wear the Cam Walker boot for a few weeks until she feels that she can transition into a sneaker. She will contact her job for form for work restrictions. All questions and concerns were addressed and she can call with any issues prior to her next visit. Progress Notes * Jeremy GUTIERREZOB: [birth year] (40 yo F)Acc No.[id number]:04/29/2025 Progress Notes Patient: Batsheva LONGORIA Provider: Michelle Plata DPM :1985 A ge:40 Y S ex:Female Date:04/29/2025 Address:[address] [place] [address] [facility] Pcp:Yue Wagner NP Subjective: * Chief Complaints: * 1 . LT foot pain. * HPI: Jolene Lindsay assisting with visit:: Chart Prep S kayden. HPI/Rooming: . ..... P [facility] reason for visit:: Follow-up: [age] y/o female RTO for follow up left foot sprain. At the last visit, patient was instructed to RICE, remain WB in CAM walker and transition to sneakers, she returned to work. Today she reports . * Medical History: Objective: * Vitals: * Examination: G eneral Examination: Constitutional / Appearance: N o acute distress , Well nourished, Appropriate personal hygiene. Mental status: C ooperative, Oriented to person, place and time, Mood and affect: normal, Judgement and intellect: normal with appropriate response to questions. Shoes today: X XXX. Exam unchanged from prior visit: w ith no significant changes in appearance or condition of feet . Assessment: * Assessment: 1. S prain of left foot, initial encounter - S93.602A (Primary) 2 . P lantar fasciitis of left foot - M72.2 3 . L eft foot pain - M79.672 Plan: * Treatment: * Preventive Medicine: Counseling: C are goal follow-up plan: BMI counseling provided to patient:?Lifestyle education * Images: * Electronic signature of Katya Plata DPM on 06/08/2025 at 07:18 AM CDT Sign off status: Pending * Provider: Michelle Plata DPM Date: 0 04/29/2025 Generated for Corinne devi/Alicja/Enzo on: 0 06/08/2025 07:18 AM CDT History and Physical Notes * HPI (History of Present Illness) Category Sub-Category Detail Notes Category Not es Primary reason for visit: Follow-up: 40 y/o female RTO for follow up left foot sprain. At the last visit, patient was instructed to RICE, remain WB in CAM walker and transition to sneakers, she returned to work. Today she reports MA assisting with visit: HPI/Rooming: ..... Chart Prep [place] Examination Category Sub-Category Detail Notes Category Not es General Examination Mental status: Cooperative, Oriented to person, place and time, Mood and affect: normal, Judgement and intellect: normal with appropriate response to questions Shoes today: XXXX Exam unchanged from prior visit: with no significant changes in appearance or condition of feet Constitutional / Appearance: No acute di stress , Well nourished, Appropriate personal hygiene
--- OUTSIDE RECORDS SUMMARY | 2025-06-08 07:18 | XMS_ITS | Encounter Summary ---
Author Organization [facility] Healthcare Address [address] [place] [address] Care Team Providers Care Propulsion Machinery Service Engineer Name Role Phone Prem Mora MD Primary Care Provider [phone] No, Physician Primary Care Provider [phone] Verónica Garrett DO Primary Care Provider [phone] No, Physician Unavailable No, Physician Unavailable Jean Erickson MD Unavailable [phone] Debbie Farias MD Unavailable [phone] Encounter Details Date Type Department Care Team (Late st Contact Info) Description 09/04/2024 Documentation [facility] [address] [place] [address] Virgen Guerin RN Social History Tobacco Use Types Packs/Day Years Used Date Smoking Tobacco: Never Passive Smoke Exposure: Never Smokeless Tobacco: Never PHQ-2 Answer Date Recorded PHQ-2 Total Score (If total score is 3 or more points, staff should administer the PHQ-9) 0 06/22/2023 Personal Safety Answer Date Recorded Have you ever been in or are you currently in a harmful physical or emotional relationship or is someone making you feel afraid or unsafe? Denies 09/03/2024 Comments Yes Sex and Gender Information Value Date Recorded Sex Assigned at Not on file Legal Sex Female 2:06 PM CDT Gender Identity Not on file Sexual Orientation Not on file documented as of this encounter Plan of Treatment Not on file documented as of this encounter Visit Diagnoses Not on filedocumented in this encounter Additional Health Concerns Infection Onset Date Last Indicated Resolved Time Varicella/Zoster, contact + airborne Comment:Localized shingles 12/04/2024 12/07/2024 12/07/2024 1: 53 PM SENIOR DEVOPS ENGINEER Varicella/Zoster, airborne Comment:R/o dissemination 12/07/2024 12/07/2024 12/07/2024 1:3 1 PM SENIOR DEVOPS ENGINEER documented as of this encounter Care Teams Propulsion Machinery Service Engineer Relationship Specialty Start Date End Date Prem Mora MD [facility] [place], [place] [id number] PCP - General Family Medicine 12/05/23 09/27/24 No, Physician PCP - General 09/28/24 10/02/24 Verónica Garrett DO [address] [place] [address] [address] [place] [address] PCP - General Family Medicine 10/03/24 No, Physician 06/16/23 09/27/24 No, Physician 10/03/24 Jean Erickson MD [address] [facility] [address] [place] [address] Consulting Physician Cardiology 09/11/24 Debbie Farias MD [address] [facility] [address] [place], [place] [id number] Consulting Physician Cardiology 10/05/24 documented as of this encounter
--- OUTSIDE RECORDS SUMMARY | 2025-06-08 07:19 | XMS_ITS | Patient Health Record ---
Author Organization 1 OF Adam cerna [facility] Address [address] [place] [address] Care Team Providers Care Reclamation Supervisor Name Role Phone Yue Wagner NP Primary Care Provider Unavailab Bozena Mayfield Unavailable [phone] Allergies Allergen (clinical drug ingredient) Drug/Non Drug Allergy documented on EMR Reaction Allergy Type Onset Date Status Substance with sulfonamide structure and antibacterial mechanism of action (substance) Sulfa Antibiotics hives Drug Allergy active Reason For Referral No Information Medications Medication SIG (Take, Route, Fr equency, Duration) Notes Start Date End Date Status Lovenox Active Flecainide Acetate A ctive Labetalol HCl Active Ibuprofen Active Social History Tobacco Use: Social History Observation Description Date Details (start date - stop date) Never Smoker NA - NA Sex Assigned At : Social History Observation Description Sex Assigned At Female Tobacco Control (Standard) Question Answer Notes Tobacco use: Nonsmoker Problems Problem Type SNOMED Code ICD Code Onset Dates Problem Status W/U Status Risk Notes Problem Plantar fasciitis of left foot (1508400322468 9101) Plantar fasciitis of left foot (M72.2) Active confirmed Vital Signs Height 66 in 03/28/2025 Weight 245 lbs 03/28/2025 BMI 39.54 kg/m2 03/28/2025 Encounters Encounter Location Date Provider Diagnosis 1 OF Adam Arce [facility] [address] [place] [address] 02/18/2025 Bozena Plata Plantar fasciitis of left foot M72.2 ; Calcaneal bursitis, left M77.52 and Left foot pain M79.672 [address] [facility] [address] [place] [address] 03/19/2025 Bozena Plata Sprain of left foot, initial encounter S93.602A ; Plantar fasciitis of left foot M72.2 and Left foot pain M79.672 1 OF [facility] [address] [facility] [address] [place] [address] 03/28/2025 Bozena Plata Sprain of left foot, initial encounter S93.602A ; Plantar fasciitis of left foot M72.2 and Left foot pain M79.672 Assessments Encounter Date Diagnosis (ICD Code) Assessment Notes Treatment Notes Treatment Clinical Notes Section Notes 02/18/2025 Calcaneal bursitis, left (ICD-10 - M77.52) 02/18/2025 Plantar fasciitis of left foot (ICD-10 - M72.2) Patient visit today included a review of medical history, review of systems, physical exam and discussion of exam findings, test results, and discussed the nature and etiology of plantar fasciitis as well as treatment options. I discussed the importance of wearing good supportive shoes and avoiding ambulation in slippers, flip flops or walking barefoot and I encouraged the patient to wear a good quality athletic sneaker whenever possible. Discussed treatment options today including stretching exercises, icing, Rx NSAIDs, prefab orthotics, custom orthotics, steroid injections, physical therapy, use of a night splint, immobilization. Dispensed literature regarding plantar fasciitis. She was given stretching exercises to perform. She elected to proceed with a steroid injection today. She purchased prefabricated orthotics today. She can call with any issues prior to her next visit. 03/19/2025 Sprain of left foot, initial encounter (ICD-10 [...] any issues prior to her next visit. 03/19/2025 Plantar fasciitis of left foot (ICD-10 - M72.2) 03/28/2025 Sprain of left foot, initial encounter (ICD-10 - S93.602A) Evaluation today included a review of medical history, review of systems, discussion of exam findings, and review of diagnoses and treatment options. Her symptoms are improving. She was advised to continue to rest, ice and elevate the foot as much as possible. She can continue to weight-bear in the Cam Walker boot, until she feels that she can transition into a good supportive sneaker. She was given a note to return to work with restrictions. All questions and concerns were addressed and she can call with any issues prior to her next visit. 03/28/2025 Plantar fasciitis of left foot (ICD-10 - M72.2) 03/19/2025 Left foot pain (ICD-10 - M79.672) 02/18/2025 Left foot pain (ICD-10 - M79.672) 03/28/2025 Left foot pain (ICD-10 - M79.672) Plan Of Treatment No Information Insurance Providers Payer Name Payer Address Payer Phone Subscriber Number Group Number Insured Name Patient Relationship to Insured Coverage Start Date Coverage End Date Sanjeev [address] [facility] [place]UL[place] CÉSAR [phone] [id number] Batsheva Gutierrez Self - patient is the insured Medical (General) History Medical History History ICD Code Atrial fibrillation (A-fib) Anemia High blood pressure Surgical History Surgery Date(Month/Year) appendectomy [facility]SCS
--- OUTSIDE RECORDS SUMMARY | 2025-06-08 07:19 | XMS_ITS ---
Author Organization 1 OF Adam cerna [facility] Address [facility] [employer] [address] Care Team Providers Care Special Deputy Sheriff Name Role Phone Bernard THOMPSON, Yue Primary Care Provider Unavailab Bozena Mayfield Unavailable [phone] REASON FOR VISIT F/U PF Social History Sex Assigned At : Social History Observation Description Sex Assigned At Female Encounters Encounter Location Date Provider Diagnosis 1 OF Adam Arce [facility] [address] [address] 03/21/2025 Bozena Plata Plan Of Treatment No Information Progress Notes * Jeremy GUTIERREZOB: [birth year] (40 yo F)Acc No.[id number]:03/21/2025 Progress Notes Patient: Batsheva LONGORIA Provider: Michelle Plata DPM :1985 A ge:40 Y S ex:Female Date:03/21/2025 Address: [address] [facility] Pcp:Yue Wagner NP Subjective: * Chief Complaints: * 1 . F/U PF. * Medical History: Objective: * Vitals: Assessment: Plan: * Treatment: * Images: * Electronic signature of Katya Plata DPM on 06/08/2025 at 07:18 AM CDT Sign off status: Pending * Provider: Michelle Plata DPM Date: 0 03/21/2025 Generated for Printi ng/Alicja/Jocelynitting on: 0 06/08/2025 07:18 AM CDT
[2025-06-08 07:44] LABS: Hematocrit 42.3 % (37.0-47.0); Hemoglobin 13.3 g/dL (12.0-15.0); Mean Corpuscular HGB Conc 31.4 g/dl (32-36); Mean Corpuscular Hemoglobin 25.1 pg (26-34); Mean Corpuscular Volume 79.8 fl (80-100); Platelet Count Result 442 k/mm3 (150-375); Red Blood Count 5.30 M/mm3 (4.2-5.4); White Blood Count 12.3 K/mm3 (4.5-10.0)
[2025-06-08 08:05] LABS: Alanine Aminotransferase 71 U/L (6-35); Albumin Level 4.0 g/dL (3.5-5.1); Alkaline Phosphatase 80 U/L (38-126); Anion Gap 15 mmol/L (4-12); Aspartate Amino Transferase 47 U/L (14-36); Bilirubin,Total 0.7 mg/dL (0.2-1.3); Blood Urea Nitrogen 10 mg/dL (7-17); Calcium 8.9 mg/dL (8.4-10.2); Carbon Dioxide 28 mmol/L (22-30); Chloride 100 mmol/L (98-107); Cholesterol 180 mg/dL (0-200); Estimated Glomerular Filt Rate > 60; Glucose 132 mg/dL (65-110); HDL Direct 41 mg/dL; Potassium 4.0 mmol/L (3.4-5.0); Sodium 143 mmol/L (137-145); Total Protein 7.2 g/dL (6.3-8.2); Triglycerides 104 mg/dL (<150)
[2025-06-08 08:36] LABS: Thyroid Stimulating Hormone 2.750 uIU/mL (0.465-4.680)
[2025-06-08 08:39] LABS: Hemoglobin A1C 6.8 % (<5.7)
== END 2025-06-08 07:15 | disposition home or self-care (01) ==
PROVIDERS: PCP Nurse Practitioner; Visit Provider Nurse Practitioner
DX: R73.03 Prediabetes (principal); E55.9 Vitamin D deficiency, unspecified; Z00.00 Encounter for general adult medical examination without abnormal findings
CPT/HCPCS: 36415; 80053; 80061; 82306; 83036; 84443; 85027